=== PATIENT | female | born 1960 | race Caucasian/White ===

== ENCOUNTER → 2017-08-19 09:15 | Outpatient (CLI) | payer MEDICAID, SELFPAY ==
[2017-08-19 10:19] LABS: Absolute Lymphocyte Count 2.24 X10^3/ul (0.83-4.51); Absolute Neutrophil Count 3.6 X10^3/uL (2.0-7.7); Basophil# 0.03 X10^3/uL; Basophil% 0.5 % (0-1); Eosinophil# 0.25 X10^3/uL; Eosinophils% 3.8 % (0-5); Hematocrit 45.7 % (37-47); Hemoglobin 14.8 g/dl (12.0-15.0); Lymphocyte # 2.24 X10^3/ul (4.0); Lymphocyte % 34.1 % (19-41); Mean Corp Hgb Conc 32.4 g/gl (32-36); Mean Corpuscular Hgb 28.5 pg (27.0-32.0); Mean Corpuscular Volume 87.9 fL (81-99); Mean Platelet Vol. 9.1 fl (6.2-12.0); Monocyte# 0.41 X10^3/uL; Monocyte% 6.2 % (0-10); Neutrophil # 3.63 X10^3/uL (2.7-7.7); Neutrophil % 55.2 % (47-70); Platelet Count 296 K/mm3 (150-450); RBC Distribution Width CV 12.2 % (11.6-14.6); RBC Distribution Width SD 39.1 fl (35.1-43.9); White Blood Count 6.6 K/mm3 (4.4-11.0)
[2017-08-19 10:21] LABS: POSITIVE COUNT NO; POSITIVE DIFFERENTIAL NO; POSITIVE MORPHOLOGY NO
[2017-08-19 10:52] LABS: ALB/GLOB Ratio 0.9 RATIO (0.9-2.4); AST(SGOT) 17 U/L (15-37); Alanine Aminotransfer ALT/SGPT 23 U/L (13-56); Albumin, Serum 3.5 g/dL (3.2-5.0); Alkaline Phosphatase 75 U/L (45-117); Anion Gap 7 (5-15); BUN 12 mg/dL (7-18); BUN/Creat Ratio 15.4 RATIO (10-20); Calcium,Total 8.7 mg/dL (8.5-10.1); Chloride 107 mmol/L (98-107); Creatinine, Serum 0.78 mg/dL (0.55-1.02); EST Glomerular Filtration Rate 81 mL/min (>60); Est Glom Filt Rate - Afr Amer 99 mL/min (>60); Free T3 5.4 pg/mL (2.18-3.98); Globulin 3.7 g/dL (2.2-4.2); Glucose 92 mg/dL (74-106); Potassium 4.1 mmol/L (3.5-5.1); Protein, Total 7.2 g/dL (6.4-8.2); Sodium Level 142 mmol/L (136-145); T4 Free Direct 0.97 ng/dL (0.76-1.46); Thyroid Stim Hormone (TSH) 0.06 uIU/mL (0.358-3.74)
[2017-08-21 11:07] LABS: Thyroid Peroxidase AB 10 IU/mL (0-34)
== END ==
PROVIDERS: Visit Provider Preventive Medicine Public Health & General Preventive Medicine
DX: E03.9 Hypothyroidism, unspecified (principal)
CPT/HCPCS: 80053; 84439; 84443; 84481; 85025; 86376

== ENCOUNTER → 2017-09-02 11:04 | Outpatient (CLI) | payer MEDICAID, SELFPAY ==
[2017-09-02 11:54] LABS: Estradiol 16.8 pg/mL; Follicle Stimulating Hormone 35.1 mIU/mL; Luteinizing Hormone 26.6 mIU/mL
[2017-09-04 13:12] LABS: Progesterone Level 0.12 ng/mL (See Comment)
== END ==
PROVIDERS: Visit Provider Preventive Medicine Public Health & General Preventive Medicine
DX: N95.1 Menopausal and female climacteric states (principal); E34.9 Endocrine disorder, unspecified; E55.9 Vitamin D deficiency, unspecified
CPT/HCPCS: 36415; 82306; 82670; 83001; 83002; 84144; 84403

== ENCOUNTER → 2019-01-07 11:06 | Outpatient (CLI) | payer OTHER, SELFPAY ==
[2019-01-07 13:56] LABS: Absolute Lymphocyte Count 1.76 X10^3/uL (0.83-4.51); Absolute Neutrophil Count 3.7 X10^3/uL (2.0-7.7); Basophil# 0.05 X10^3/uL; Basophil% 0.8 % (0-1); Eosinophil# 0.21 X10^3/uL; Eosinophils% 3.3 % (0-5); Hematocrit 45.4 % (37-47); Hemoglobin 14.3 g/dL (12.0-15.0); Lymphocyte # 1.76 X10^3/ul (4.0); Lymphocyte % 27.9 % (19-41); Mean Corp Hgb Conc 31.5 g/dL (32-36); Mean Corpuscular Hgb 27.8 pg (27.0-32.0); Mean Corpuscular Volume 88.2 fL (81-99); Mean Platelet Vol. 8.8 fl (6.2-12.0); Monocyte# 0.53 X10^3/uL; Monocyte% 8.4 % (0-10); NRBC Flagged by Analyzer 0 % (0-5); Neutrophil # 3.74 X10^3/uL (2.7-7.7); Neutrophil % 59.3 % (47-70); Platelet Count 311 K/mm3 (150-450); RBC Distribution Width CV 12.1 % (11.6-14.6); RBC Distribution Width SD 39.1 fl (35.1-43.9); Red Blood Count 5.15 M/mm3 (4.2-5.4); White Blood Count 6.3 K/mm3 (4.4-11.0)
[2019-01-07 14:13] LABS: Progesterone Level 0.31 ng/mL (See Comment); Vitamin D,25 Hydroxy 44.4 ng/mL (29.95-100.01)
[2019-01-07 14:16] LABS: ALB/GLOB Ratio 0.9 RATIO (0.9-2.4); AST(SGOT) 14 U/L (15-37); Alanine Aminotransfer ALT/SGPT 21 U/L (13-56); Albumin, Serum 3.4 g/dL (3.2-5.0); Alkaline Phosphatase 83 U/L (45-117); Anion Gap 6 (5-15); BUN 12 mg/dL (7-18); BUN/Creat Ratio 15.6 RATIO (10-20); Calcium,Total 8.5 mg/dL (8.5-10.1); Chloride 108 mmol/L (98-107); Creatinine, Serum 0.77 mg/dL (0.55-1.02); EST Glomerular Filtration Rate 82 mL/min (>60); Est Glom Filt Rate - Afr Amer 99 mL/min (>60); Estradiol 27.8 pg/mL; Follicle Stimulating Hormone 28.9 mIU/mL; Free T3 3.9 pg/mL (2.18-3.98); Globulin 3.7 g/dL (2.2-4.2); Glucose 91 mg/dL (74-106); Luteinizing Hormone 23.2 mIU/mL; Potassium 3.9 mmol/L (3.5-5.1); Protein, Total 7.1 g/dL (6.4-8.2); Sodium Level 142 mmol/L (136-145); T4 Free Direct 0.87 ng/dL (0.76-1.46); Thyroid Stim Hormone (TSH) 2.69 uIU/mL (0.358-3.74)
[2019-01-09 03:06] LABS: DHEA Sulfate 125.9 ug/dL (29.4-220.5); Testosterone Free 4.3 pg/mL (0.0-4.2)
[2019-01-09 12:54] LABS: Thyroid Peroxidase AB 6 IU/mL (0-34)
== END ==
PROVIDERS: Referring Provider Preventive Medicine Public Health & General Preventive Medicine; Visit Provider Preventive Medicine Public Health & General Preventive Medicine
DX: E03.9 Hypothyroidism, unspecified (principal); E34.9 Endocrine disorder, unspecified; N95.1 Menopausal and female climacteric states; E55.9 Vitamin D deficiency, unspecified
CPT/HCPCS: 36415; 80053; 82306; 82627; 82670; 83001; 83002; 84144; 84402; 84439; 84443; 84481; 85025; 86376; 82626

== ENCOUNTER → 2020-06-26 09:53 | Outpatient (CLI) | payer OTHER, SELFPAY ==
[2020-06-26 10:58] LABS: Absolute Lymphocyte Count 2.35 X10^3/uL (0.83-4.51); Absolute Neutrophil Count 4.7 X10^3/uL (2.0-7.7); Basophil# 0.05 X10^3/uL; Basophil% 0.6 % (0-1); Eosinophil# 0.18 X10^3/uL; Eosinophils% 2.3 % (0-5); Hematocrit 46.7 % (37-47); Hemoglobin 14.8 g/dL (12.0-15.0); Lymphocyte # 2.35 X10^3/ul (4.0); Lymphocyte % 29.9 % (19-41); Mean Corp Hgb Conc 31.7 g/dL (32-36); Mean Corpuscular Hgb 28.5 pg (27.0-32.0); Mean Corpuscular Volume 89.8 fL (81-99); Mean Platelet Vol. 9.1 fl (6.2-12.0); Monocyte# 0.57 X10^3/uL; Monocyte% 7.3 % (0-10); NRBC Flagged by Analyzer 0 % (0-5); Neutrophil # 4.66 X10^3/uL (2.7-7.7); Neutrophil % 59.3 % (47-70); Platelet Count 344 K/mm3 (150-450); RBC Distribution Width CV 12.8 % (11.6-14.6); RBC Distribution Width SD 41.9 fl (35.1-43.9); White Blood Count 7.9 K/mm3 (4.4-11.0)
[2020-06-26 11:45] LABS: Vitamin D,25 Hydroxy 53.6 ng/mL
[2020-06-26 11:52] LABS: ALB/GLOB Ratio 0.9 RATIO (0.9-2.4); AST(SGOT) 27 U/L (15-37); Alanine Aminotransfer ALT/SGPT 46 U/L (13-56); Albumin, Serum 3.6 g/dL (3.2-5.0); Alkaline Phosphatase 90 U/L (45-117); Anion Gap 5 (5-15); BUN 13 mg/dL (7-18); BUN/Creat Ratio 14.3 RATIO (10-20); Calcium,Total 9.1 mg/dL (8.5-10.1); Chloride 105 mmol/L (98-107); Creatinine, Serum 0.91 mg/dL (0.55-1.02); EST Glomerular Filtration Rate 68 mL/min (>60); Est Glom Filt Rate - Afr Amer 82 mL/min (>60); Estradiol 29.2 pg/mL; Free T3 3.6 pg/mL (2.18-3.98); Globulin 4.2 g/dL (2.2-4.2); Glucose 115 mg/dL (74-106); Protein, Total 7.8 g/dL (6.4-8.2); Sodium Level 140 mmol/L (136-145); T4 Free Direct 0.87 ng/dL (0.76-1.46); Thyroid Stim Hormone (TSH) 3.21 uIU/mL (0.358-3.74)
[2020-06-26 13:19] LABS: Progesterone Level < 0.21 ng/mL (See Comment)
[2020-06-27 13:42] LABS: Thyroid Peroxidase AB < 9 IU/mL (0-34)
== END ==
PROVIDERS: Visit Provider Preventive Medicine Public Health & General Preventive Medicine
DX: E03.9 Hypothyroidism, unspecified (principal); E34.9 Endocrine disorder, unspecified; N95.1 Menopausal and female climacteric states; E55.9 Vitamin D deficiency, unspecified
CPT/HCPCS: 36415; 80053; 82306; 82627; 82670; 84144; 84403; 84439; 84443; 84481; 85025; 86376; 82626

== ENCOUNTER → 2021-10-13 | Outpatient (CLI) | payer OTHER, SELFPAY ==
[2021-10-13 10:05] LABS: Absolute Neutrophil Count 4.8 X10^3/uL (2.0-7.7); Basophil# 0.05 X10^3/uL; Basophil% 0.6 % (0-1); Eosinophils% 3.6 % (0-5); Hematocrit 46.7 % (37-47); Hemoglobin 15.1 g/dL (12.0-15.0); Lymphocyte % 30.3 % (19-41); Mean Corp Hgb Conc 32.3 g/dL (32-36); Mean Corpuscular Hgb 28.5 pg (27.0-32.0); Mean Corpuscular Volume 88.1 fL (81-99); Mean Platelet Vol. 8.7 fl (6.2-12.0); Monocyte# 0.56 X10^3/uL; Monocyte% 6.8 % (0-10); NRBC Flagged by Analyzer 0 % (0-5); Neutrophil # 4.77 X10^3/uL (2.7-7.7); Platelet Count 356 K/mm3 (150-450); RBC Distribution Width CV 12.2 % (11.6-14.6); RBC Distribution Width SD 39.4 fl (35.1-43.9); White Blood Count 8.2 K/mm3 (4.4-11.0)
[2021-10-13 10:46] LABS: Progesterone Level 0.53 ng/mL (See Comment)
[2021-10-13 11:51] LABS: ALB/GLOB Ratio 0.9 RATIO (0.9-2.4); AST(SGOT) 25 U/L (15-37); Alanine Aminotransfer ALT/SGPT 33 U/L (13-56); Albumin, Serum 3.5 g/dL (3.2-5.0); Alkaline Phosphatase 78 U/L (45-117); Anion Gap 6 (5-15); BUN 11 mg/dL (7-18); Chloride 106 mmol/L (98-107); Creatinine, Serum 0.92 mg/dL (0.55-1.02); EST Glomerular Filtration Rate 66 mL/min (>60); Est Glom Filt Rate - Afr Amer 80 mL/min (>60); Estradiol 40.4 pg/mL; Free T3 3.8 pg/mL (2.18-3.98); Glucose 126 mg/dL (74-106); Protein, Total 7.5 g/dL (6.4-8.2); Sodium Level 139 mmol/L (136-145); T4 Free Direct 1.06 ng/dL (0.76-1.46); Thyroid Stim Hormone (TSH) 2.97 uIU/mL (0.358-3.74)
[2021-10-14 09:08] LABS: Thyroid Peroxidase AB < 8 IU/mL (0-34)
== END | disposition home or self-care (01) ==
LOC: LAB 09:47
PROVIDERS: Referring Provider Preventive Medicine Public Health & General Preventive Medicine; Visit Provider Preventive Medicine Public Health & General Preventive Medicine
DX: E03.9 Hypothyroidism, unspecified (principal); N95.1 Menopausal and female climacteric states
CPT/HCPCS: 36415; 80053; 82627; 82670; 84144; 84403; 84439; 84443; 84481; 85025; 86376; 82626

== ENCOUNTER → 2022-10-28 | Outpatient (CLI) | payer BC, SELFPAY ==
[2022-10-28 12:38] LABS: Absolute Lymphocyte Count 2.55 X10^3/uL (0.83-4.51); Absolute Neutrophil Count 4.6 X10^3/uL (2.0-7.7); Basophil# 0.06 X10^3/uL; Basophil% 0.8 % (0-1); Eosinophil# 0.23 X10^3/uL; Eosinophils% 2.9 % (0-5); Hematocrit 47.4 % (37-47); Hemoglobin 14.9 g/dL (12.0-15.0); Lymphocyte # 2.55 X10^3/ul (0.83-4.51); Mean Corp Hgb Conc 31.4 g/dL (32-36); Mean Corpuscular Hgb 28.3 pg (27.0-32.0); Mean Corpuscular Volume 90.1 fL (81-99); Mean Platelet Vol. 9.4 fl (6.2-12.0); Monocyte# 0.51 X10^3/uL; Monocyte% 6.4 % (0-10); NRBC Flagged by Analyzer 0 % (0-5); Neutrophil # 4.57 X10^3/uL (2.7-7.7); Neutrophil % 57.4 % (47-70); Platelet Count 391 K/mm3 (150-450); RBC Distribution Width CV 12.5 % (11.6-14.6); RBC Distribution Width SD 41.1 fl (35.1-43.9); Red Blood Count 5.26 M/mm3 (4.2-5.4)
[2022-10-28 13:20] LABS: Progesterone Level 0.68 ng/mL (See Comment)
[2022-10-28 15:11] LABS: ALB/GLOB Ratio 0.9 RATIO (0.9-2.4); AST(SGOT) 23 U/L (15-37); Alanine Aminotransfer ALT/SGPT 32 U/L (13-56); Albumin, Serum 3.6 g/dL (3.2-5.0); Alkaline Phosphatase 71 U/L (45-117); Anion Gap 6 (5-15); BUN 16 mg/dL (7-18); BUN/Creat Ratio 20.3 RATIO (10-20); Chloride 105 mmol/L (98-107); Creatinine, Serum 0.79 mg/dL (0.55-1.02); EST Glomerular Filtration Rate 79 mL/min (>60); Est Glom Filt Rate - Afr Amer 95 mL/min (>60); Estradiol 36.6 pg/mL; Free T3 3.7 pg/mL (2.18-3.98); Globulin 3.9 g/dL (2.2-4.2); Glucose 115 mg/dL (74-106); Protein, Total 7.5 g/dL (6.4-8.2); Sodium Level 140 mmol/L (136-145); T4 Free Direct 0.93 ng/dL (0.76-1.46); Thyroid Stim Hormone (TSH) 2.87 uIU/mL (0.358-3.74)
[2022-10-29 04:07] LABS: Thyroid Peroxidase AB < 9 IU/mL (0-34)
== END | disposition home or self-care (01) ==
PROVIDERS: Referring Provider Preventive Medicine Public Health & General Preventive Medicine; Visit Provider Preventive Medicine Public Health & General Preventive Medicine
DX: E03.9 Hypothyroidism, unspecified (principal); N95.1 Menopausal and female climacteric states
CPT/HCPCS: 36415; 80053; 82670; 84144; 84403; 84439; 84443; 84481; 85025; 86376

== ENCOUNTER → 2022-11-21 | Outpatient (CLI) | payer BC, SELFPAY ==
[2022-11-21 09:41] LABS: ALB/GLOB Ratio 0.8 RATIO (0.9-2.4); AST(SGOT) 21 U/L (15-37); Alanine Aminotransfer ALT/SGPT 26 U/L (13-56); Albumin, Serum 3.3 g/dL (3.2-5.0); Alkaline Phosphatase 71 U/L (45-117); Anion Gap 7 (5-15); BUN 11 mg/dL (7-18); BUN/Creat Ratio 13.6 RATIO (10-20); Calcium,Total 8.6 mg/dL (8.5-10.1); Chloride 109 mmol/L (98-107); Cholesterol 192 mg/dL (200); Creatinine, Serum 0.81 mg/dL (0.55-1.02); EST Glomerular Filtration Rate 76 mL/min (>60); Est Glom Filt Rate - Afr Amer 93 mL/min (>60); Globulin 3.9 g/dL (2.2-4.2); Glucose 119 mg/dL (74-106); High Density Lipoprotein 48 mg/dL; Potassium 3.6 mmol/L (3.5-5.1); Protein, Total 7.2 g/dL (6.4-8.2); Sodium Level 142 mmol/L (136-145); Triglycerides 195 mg/dL; Very Low Density Lipoprotein 39 mg/dL (5-40)
[2022-11-22 11:08] LABS: C-Peptide 3.5 ng/mL (1.1-4.4)
== END | disposition home or self-care (01) ==
LOC: LAB 08:00
PROVIDERS: Referring Provider Preventive Medicine Public Health & General Preventive Medicine; Visit Provider Preventive Medicine Public Health & General Preventive Medicine
DX: E78.5 Hyperlipidemia, unspecified (principal); E16.2 Hypoglycemia, unspecified; E63.9 Nutritional deficiency, unspecified
CPT/HCPCS: 36415; 80053; 80061; 84681

== ENCOUNTER → 2023-05-26 | Outpatient (CLI) | payer BC, SELFPAY ==
[2023-05-26 07:47] LABS: Absolute Lymphocyte Count 3.33 X10^3/uL (0.83-4.51); Absolute Neutrophil Count 4.1 X10^3/uL (2.0-7.7); Basophil# 0.05 X10^3/uL; Basophil% 0.6 % (0-1); Eosinophil# 0.24 X10^3/uL; Eosinophils% 2.9 % (0-5); Hematocrit 47.9 % (37-47); Hemoglobin 15.3 g/dL (12.0-15.0); Lymphocyte # 3.33 X10^3/ul (0.83-4.51); Lymphocyte % 39.7 % (19-41); Mean Corp Hgb Conc 31.9 g/dL (32-36); Mean Corpuscular Hgb 28.4 pg (27.0-32.0); Mean Platelet Vol. 8.9 fl (6.2-12.0); Monocyte% 7.2 % (0-10); NRBC Flagged by Analyzer 0 % (0-5); Neutrophil # 4.12 X10^3/uL (2.7-7.7); Neutrophil % 49.1 % (47-70); Platelet Count 403 K/mm3 (150-450); RBC Distribution Width CV 12.3 % (11.6-14.6); Red Blood Count 5.38 M/mm3 (4.2-5.4); White Blood Count 8.4 K/mm3 (4.4-11.0)
[2023-05-26 09:01] LABS: ALB/GLOB Ratio 0.9 RATIO (0.9-2.4); AST(SGOT) 24 U/L (15-37); Alanine Aminotransfer ALT/SGPT 29 U/L (13-56); Albumin, Serum 3.6 g/dL (3.2-5.0); Alkaline Phosphatase 77 U/L (45-117); Anion Gap 5 (5-15); BUN 16 mg/dL (7-18); BUN/Creat Ratio 16.7 RATIO (10-20); Calcium,Total 9.2 mg/dL (8.5-10.1); Chloride 107 mmol/L (98-107); Cholesterol 186 mg/dL (200); Creatinine, Serum 0.96 mg/dL (0.55-1.02); EST Glomerular Filtration Rate 63 mL/min (>60); Est Glom Filt Rate - Afr Amer 76 mL/min (>60); Free T3 2.3 pg/mL (2.18-3.98); Glucose 132 mg/dL (74-106); High Density Lipoprotein 48 mg/dL; Protein, Total 7.6 g/dL (6.4-8.2); Sodium Level 140 mmol/L (136-145); T4 Free Direct 0.87 ng/dL (0.76-1.46); Thyroid Stim Hormone (TSH) 5.39 uIU/mL (0.358-3.74); Triglycerides 204 mg/dL; Very Low Density Lipoprotein 41 mg/dL (5-40)
[2023-05-26 09:53] LABS: Hemoglobin A1c 6.1 % (3.8-5.6)
[2023-05-26 09:58] LABS: Progesterone Level 0.71 ng/mL (See Comment)
[2023-05-26 10:51] LABS: Homocysteine 11.2 umol/L (3.2-10.7)
[2023-05-27 08:11] LABS: Thyroid Peroxidase AB 9 IU/mL (0-34)
== END | disposition home or self-care (01) ==
LOC: LAB 07:24
PROVIDERS: Referring Provider Preventive Medicine Public Health & General Preventive Medicine; Visit Provider Preventive Medicine Public Health & General Preventive Medicine
DX: E03.9 Hypothyroidism, unspecified (principal); E78.5 Hyperlipidemia, unspecified; N95.1 Menopausal and female climacteric states
CPT/HCPCS: 36415; 80053; 80061; 83036; 83090; 84144; 84403; 84439; 84443; 84481; 85025; 86376

== ENCOUNTER → 2024-03-02 | Outpatient (CLI) | payer BC, SELFPAY ==
[2024-03-02 07:49] LABS: Absolute Lymphocyte Count 2.92 X10^3/uL (0.83-4.51); Absolute Neutrophil Count 4.7 X10^3/uL (2.0-7.7); Basophil# 0.06 X10^3/uL; Basophil% 0.7 % (0-1); Eosinophil# 0.23 X10^3/uL; Eosinophils% 2.7 % (0-5); Hematocrit 46.6 % (37-47); Hemoglobin 14.7 g/dL (12.0-15.0); Lymphocyte # 2.92 X10^3/ul (0.83-4.51); Lymphocyte % 34.7 % (19-41); Mean Corp Hgb Conc 31.5 g/dL (32-36); Mean Corpuscular Hgb 28.1 pg (27.0-32.0); Mean Corpuscular Volume 89.1 fL (81-99); Mean Platelet Vol. 8.7 fl (6.2-12.0); Monocyte% 5.9 % (0-10); NRBC Flagged by Analyzer 0 % (0-5); Neutrophil # 4.67 X10^3/uL (2.7-7.7); Neutrophil % 55.6 % (47-70); Platelet Count 404 K/mm3 (150-450); RBC Distribution Width SD 39.5 fl (35.1-43.9); Red Blood Count 5.23 M/mm3 (4.2-5.4); White Blood Count 8.4 K/mm3 (4.4-11.0)
[2024-03-02 08:51] LABS: ALB/GLOB Ratio 0.9 RATIO (0.9-2.4); AST(SGOT) 19 U/L (15-37); Alanine Aminotransfer ALT/SGPT 24 U/L (13-56); Albumin, Serum 3.6 g/dL (3.2-5.0); Alkaline Phosphatase 70 U/L (45-117); Anion Gap 8 (5-15); BUN 15 mg/dL (7-18); BUN/Creat Ratio 16.7 RATIO (10-20); Calcium,Total 8.9 mg/dL (8.5-10.1); Chloride 107 mmol/L (98-107); EST Glomerular Filtration Rate 67 mL/min (>60); Est Glom Filt Rate - Afr Amer 82 mL/min (>60); Estradiol 31.9 pg/mL; Free T3 2.3 pg/mL (2.18-3.98); Globulin 3.8 g/dL (2.2-4.2); Glucose 147 mg/dL (74-106); Potassium 3.6 mmol/L (3.5-5.1); Protein, Total 7.4 g/dL (6.4-8.2); Sodium Level 140 mmol/L (136-145); T4 Free Direct 0.91 ng/dL (0.76-1.46)
[2024-03-03 07:28] LABS: Thyroid Peroxidase AB 15 IU/mL (0-34)
[2024-03-06 04:08] LABS: PROGESTERONE 0.3 ng/mL (.)
== END | disposition home or self-care (01) ==
LOC: LAB 07:22
PROVIDERS: Referring Provider Preventive Medicine Public Health & General Preventive Medicine; Visit Provider Preventive Medicine Public Health & General Preventive Medicine
DX: E03.9 Hypothyroidism, unspecified (principal); N95.1 Menopausal and female climacteric states
CPT/HCPCS: 36415; 80053; 82670; 84144; 84403; 84439; 84443; 84481; 85025; 86376

== ENCOUNTER → 2024-05-06 | Outpatient (CLI) | payer BC, SELFPAY ==
[2024-05-06 07:21] LABS: Bedside Glucose 108 mg/dL (74-106)
[2024-05-06 08:03] LABS: Glucose GTT- Fasting 119 mg/dL (74-106)
[2024-05-06 08:24] LABS: Glucose GTT-30 minutes 169 mg/dL (110-170)
[2024-05-06 09:47] LABS: Glucose GTT- 2 Hour 216 mg/dL (70-120)
[2024-05-06 10:18] LABS: Glucose GTT- 1 Hour 216 mg/dL (120-170)
[2024-05-06 11:04] LABS: Glucose GTT- 3 Hour 120 mg/dL (74-106)
[2024-05-07 06:08] LABS: Insulin Level 14.6 uIU/mL (2.6-24.9)
[2024-05-07 08:09] LABS: Insulin Level 46.6 uIU/mL (2.6-24.9)
[2024-05-07 08:09] LABS: Insulin Level 48.6 uIU/mL (2.6-24.9)
[2024-05-07 08:09] LABS: Insulin Level 60.1 uIU/mL (2.6-24.9)
== END | disposition home or self-care (01) ==
LOC: LAB 06:49
PROVIDERS: Referring Provider Preventive Medicine Public Health & General Preventive Medicine; Visit Provider Preventive Medicine Public Health & General Preventive Medicine
DX: E11.649 Type 2 diabetes mellitus with hypoglycemia without coma (principal)
CPT/HCPCS: 36415; 82951; 82952; 82962; 83525

== ENCOUNTER → 2024-08-02 | Outpatient (CLI) | payer BC, SELFPAY ==
[2024-08-02 08:34] LABS: Absolute Lymphocyte Count 2.82 X10^3/uL (0.83-4.51); Absolute Neutrophil Count 4.1 X10^3/uL (2.0-7.7); Basophil# 0.05 X10^3/uL; Basophil% 0.6 % (0-1); Hematocrit 45.3 % (37-47); Hemoglobin 14.7 g/dL (12.0-15.0); Lymphocyte # 2.82 X10^3/ul (0.83-4.51); Lymphocyte % 35.5 % (19-41); Mean Corp Hgb Conc 32.5 g/dL (32-36); Mean Corpuscular Hgb 28.3 pg (27.0-32.0); Mean Corpuscular Volume 87.3 fL (81-99); Mean Platelet Vol. 9.3 fl (6.2-12.0); Monocyte# 0.61 X10^3/uL; Monocyte% 7.7 % (0-10); NRBC Flagged by Analyzer 0 % (0-5); Neutrophil # 4.05 X10^3/uL (2.7-7.7); Neutrophil % 50.9 % (47-70); Platelet Count 354 K/mm3 (150-450); RBC Distribution Width CV 12.8 % (11.6-14.6); RBC Distribution Width SD 40.6 fl (35.1-43.9); Red Blood Count 5.19 M/mm3 (4.2-5.4)
[2024-08-02 09:32] LABS: Hemoglobin A1c 5.6 % (<=5.6)
[2024-08-02 09:33] LABS: ALB/GLOB Ratio 1.3 RATIO (0.9-2.4); AST(SGOT) 28 U/L (<=31); Alanine Aminotransfer ALT/SGPT 34 U/L (<=34); Alkaline Phosphatase 63 U/L (35-104); Anion Gap 11 (5-15); BUN 12 mg/dL (4-19); BUN/Creat Ratio 17.1 RATIO (10-20); Carbon Dioxide 24.5 mmol/L (21.0-32.0); Chloride 106 mmol/L (98-108); Creatinine, Serum 0.71 mg/dL (0.70-1.20); EST Glomerular Filtration Rate 97 (>60); Globulin 3.1 g/dL (2.2-4.2); Glucose 102 mg/dL (70-99); Potassium 4.2 mmol/L (3.3-5.1); Sodium Level 141 mmol/L (133-145); Total Bilirubin 0.32 mg/dL (0.00-1.30)
[2024-08-03 10:08] LABS: C-Peptide 3.7 ng/mL (1.1-4.4)
== END | disposition home or self-care (01) ==
LOC: LAB 07:22
PROVIDERS: Referring Provider Preventive Medicine Public Health & General Preventive Medicine; Visit Provider Preventive Medicine Public Health & General Preventive Medicine
DX: E11.649 Type 2 diabetes mellitus with hypoglycemia without coma (principal); E63.9 Nutritional deficiency, unspecified
CPT/HCPCS: 36415; 80053; 83036; 84681; 85025

== ENCOUNTER → 2024-10-25 | Outpatient (CLI) | payer BC, SELFPAY ==
--- OUTSIDE RECORDS SUMMARY | 2024-10-25 07:16 | XMS RPT_ITS | CCD ---
Author Organization [facility] Care Team Providers Care Recruitment Assistant Name Role Phone Care Physician, No Primary Primary Care Unava ilable Cedric, Black Attending Unavailable Cedric, Black Referring Unavailable Care Physician, No Primary Primary Care Unava ilable Cedric, Black Attending Unavailable Cedric, Black Referring Unavailable Care Physician, No Primary Primary Care Unava ilable Cedric, Black Attending Unavailable Cedric, Black Referring Unavailable Problems Problem Classification Problem Date Documented Da te Episodic/Chronic Diabetes mellitus with complications (1 source) Type 2 diabetes mellitus with 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 Performed at: [facility] [address] [id number] Director Surgical: Magdaleno Mcnamara PhD, Phone: [phone] Performed By: #### L 3300.3500, [id number] #### [facility] [address] [place], [address] CBC W/Diff, Automatedon 07-10 Absolute Lymph 2.82 X10 3/uL Normal 0.83-4.51 [facility] Comment on above: Performed By: #### L 3300.3500, L500.4700 #### [facility] [address] [place], [address] Absolute Neut 4.1 X10 3/uL Normal 2.0-7.7 [facility] Comment on above: Performed By: #### L 3300.3500, L500.4700 #### [facility] [address] [place], [address] Basophils/100 WBC (Bld) 0.6 % Normal 0-1 [facility] Comment on above: Performed By: #### L 3300.3500, L500.4700 #### [facility] [address] [place], [address] Eosinophils/100 WBC (Bld) 5.0 % Normal 0-5 [facility] Comment on above: Performed By: #### L 3300.3500, L500.4700 #### [facility] [address] [place], [address] Erythrocyte distribution width (RBC) [Ratio] 12.8 % Normal 11.6-14.6 [facility] Comment on above: Performed By: #### L 3300.3500, L500.4700 #### [facility] [address] [place], [address] Hematocrit (Bld) [Volume fraction] 45.3 % Normal 37-47 [facility] Comment on above: Performed By: #### L 3300.3500, L500.4700 #### [facility] [address] [place], [address] Hemoglobin (Bld) [Mass/Vol] 14.7 g/dL Normal 12.0-15.0 [facility] Comment on above: Performed By: #### L 3300.3500, L500.4700 #### [facility] [address] [place], [address] IG% 0.300 Normal 0.0-0.9 [facility] Comment on above: Result Comment: IG% - Immature Granulocytes (promyelocytes, myelocytes and metamyelocytes) > 1% indicates that a LEFT SHIFT is Present. Performed By: #### L 3300.3500, L500.4700 #### [facility] [address] [place], [address] Lymphocytes/100 WBC (Bld) 35.5 % Normal 19-41 [facility] Comment on above: Performed By: #### L 3300.3500, L500.4700 #### [facility] [address] [place], [address] MCH (RBC) [Entitic mass] 28.3 pg Normal 27.0-32.0 [facility] Comment on above: Performed By: #### L 3300.3500, L500.4700 #### [facility] [address] [place], [address] MCHC (RBC) [Mass/Vol] 32.5 g/dL Normal 32-36 [facility] Comment on above: Performed By: #### L 3300.3500, L500.4700 #### [facility] [address] [place], [address] MCV (RBC) [Entitic vol] 87.3 fL Normal 81-99 [facility] Comment on above: Performed By: #### L 3300.3500, L500.4700 #### [facility] [address] [place], [address] Monocytes/100 WBC (Bld) 7.7 % Normal 0-10 [facility] Comment on above: Performed By: #### L 3300.3500, L500.4700 #### [facility] [address] [place], [address] Neutrophils/100 WBC (Bld) 50.9 % Normal 47-70 [facility] Comment on above: Performed By: #### L 3300.3500, L500.4700 #### [facility] [address] [place], [address] Nucleated RBC (Bld) [#/Vol] 0 10*3/uL Normal 0-5 [facility] Comment on above: Performed By: #### L 3300.3500, L500.4700 #### [facility] [address] [place], [address] Platelet mean volume (Bld) [Entitic vol] 9.3 fL Normal 6.2-12.0 [facility] Comment on above: Performed By: #### L 3300.3500, L500.4700 #### [facility] [address] [place], [address] Platelets (Bld) [#/Vol] 354 10*3/uL Normal 150-450 [facility] Comment on above: Performed By: #### L 3300.3500, L500.4700 #### [facility] [address] [place], [address] RBC (Bld) [#/Vol] 5.19 10*6/uL Normal 4.2-5.4 [facility] Comment on above: Performed By: #### L 3300.3500, L500.4700 #### [facility] [address] [place], [address] RDW SD 40.6 fl Normal 35.1-43.9 [facility] Comment on above: Performed By: #### L 3300.3500, L500.4700 #### [facility] [address] [place], [address] WBC (Bld) [#/Vol] 8.0 10*3/uL Normal 4.4-11.0 [facility] Comment on above: Performed By: #### L 3300.3500, L500.4700 #### [facility] [address] [place], [address] Comprehensive Metabolic Prof ilon 08-02-2024 Albumin [Mass/Vol] 4.0 g/dL Normal 3.4-4.8 [facility] Comment on above: Performed By: #### L 3300.3500, L500.4700 #### [facility] [address] [place], [address] Albumin/Globulin [Mass ratio] 1.3 {ratio} Normal 0.9-2.4 [facility] Comment on above: Performed By: #### L 3300.3500, L500.4700 #### [facility] [address] [place], [address] ALK PHOS 63 U/L Normal 35-104 [facility] Comment on above: Performed By: #### L 3300.3500, L500.4700 #### [facility] [address] [place], [address] ALT [Catalytic activity/Vol] 34 U/L Normal <=34 [facility] Comment on above: Performed By: #### L 3300.3500, L500.4700 #### [facility] [address] [place], [address] AST [Catalytic activity/Vol] 28 U/L Normal <=31 [facility] Comment on above: Performed By: #### L 3300.3500, L500.4700 #### [facility] [address] [place], [address] Bilirubin [Mass/Vol] 0.32 mg/dL Normal 0.00-1.30 [facility] Comment on above: Performed By: #### L 3300.3500, L500.4700 #### [facility] [address] [place], [address] BUN/CRE 17.1 RATIO Normal 10-20 [facility] Comment on above: Performed By: #### L 3300.3500, L500.4700 #### [facility] [address] [place], [address] Calcium [Mass/Vol] 9.0 mg/dL Normal 7.6-11.0 [facility] Comment on above: Performed By: #### L 3300.3500, L500.4700 #### [facility] [address] [place], [address] Chloride [Moles/Vol] 106 mmol/L Normal 98-108 [facility] Comment on above: Performed By: #### L 3300.3500, L500.4700 #### [facility] [address] [place], [address] CO2 [Moles/Vol] 24.5 mmol/L Normal 21.0-32.0 [facility] Comment on above: Performed By: #### L 3300.3500, L500.4700 #### [facility] [address] [place], [address] Creatinine [Mass/Vol] 0.71 mg/dL Normal 0.70-1.20 [facility] Comment on above: Performed By: #### L 3300.3500, L500.4700 #### [facility] [address] [place], [address] GAP 11 Normal 5-15 [facility] Comment on above: Performed By: #### L 3300.3500, L500.4700 #### [facility] [address] [place], [address] GFR/1.73 sq M.predicted among non-blacks MDRD (S/P/Bld) [Vol rate/Area] 97 mL/min/{1.73_m2} Normal >60 [facility] Comment on above: Result Comment: mL/m in/1.73m2 CKD-EPI Creatinine Equation (2020) Performed By: #### L 3300.3500, L500.4700 #### [facility] [address] [place], [address] Globulin (S) [Mass/Vol] 3.1 g/dL Normal 2.2-4.2 [facility] Comment on above: Performed By: #### L 3300.3500, L500.4700 #### [facility] [address] [place], [address] Glucose [Mass/Vol] 102 mg/dL High 70-99 [facility] Comment on above: Performed By: #### L 3300.3500, L500.4700 #### [facility] [address] [place], [address] Potassium [Moles/Vol] 4.2 mmol/L Normal 3.3-5.1 [facility] Comment on above: Performed By: #### L 3300.3500, L500.4700 #### [facility] [address] [place], [address] Sodium [Moles/Vol] 141 mmol/L Normal 133-145 [facility] Comment on above: Performed By: #### L 3300.3500, L500.4700 #### [facility] [address] [place], [address] T PROT 7.0 g/dL Normal 5.9-8.4 [facility] Comment on above: Performed By: #### L 3300.3500, L500.4700 #### [facility] [address] [place], [address] Urea nitrogen [Mass/Vol] 12 mg/dL Normal 4-19 [facility] Comment on above: Performed By: #### L 3300.3500, L500.4700 #### [facility] [address] [place], [address] Hemoglobin A1con 08-02-2024 HbA1c (Bld) [Mass fraction] 5.6 % Normal <=5.6 [facility] Comment on above: Result Comment: Norm al < 5.7 % Prediabetic 5.7 - 6.4 % Diabetic >or= 6.5 % Please note range changes. Performed By: #### L 3300.3500, L500.4700 #### [facility] [address] [place], [place], [address] Insulin Levelon 05-07-2024 INSULIN,FASTING 60.1 uIU/mL High 2.6-24.9 [facility] Comment on above: Result Comment: Perf ormed at: [facility] [employer] [id number] Director Surgical: Magdaleno Mcnamara PhD, Phone: [phone] Performed By: #### L 3300.3500, L500.4700 #### [facility] [address] [place], [place], [address] INSULIN,FASTING 46.6 uIU/mL High 2.6-24.9 [facility] Comment on above: Result Comment: Perf ormed at: [facility] [employer] [id number] Director Surgical: Magdaleno Mcnamara PhD, Phone: [phone] Performed By: #### L 3300.3500, L500.4700 #### [facility] [address] [place], [place], [address] INSULIN,FASTING 48.6 uIU/mL High 2.6-24.9 [facility] Comment on above: Result Comment: Perf ormed at: [facility] [employer] [id number] Director Surgical: Magdaleno Mcnamara PhD, Phone: [phone] Performed By: #### L 3300.3500, L500.4700 #### [facility] [address] [place], [place], [address] INSULIN,FASTING 103.0 uIU/mL High 2.6-24.9 [facility] Comment on above: Result Comment: Perf ormed at: [address] [id number] Director Surgical: Magdaleno Mcnamara PhD, Phone: [phone] Performed By: #### L 3300.3500 #### [facility] [address] [place], [place], [address] INSULIN,FASTING 14.6 uIU/mL Normal 2.6-24.9 [facility] Comment on above: Result Comment: Perf ormed at: [address] [id number] Director Surgical: Magdaleno Mcnamara PhD, Phone: [phone] Performed By: #### L 3300.3500, L500.4700 #### [facility] [address] [place], [place], [id number] 3 HR Glucose Tolerance Testo n 05-06-2024 3HR GTT High 70-120 [facility] Comment on above: Order Comment: Y Result Comment: FAST ING 119 H Col: 05/06/24 0658 GLUCOSE TOLERANCE TEST Reference Interval Non- Adults Fasting 74 - 106 30 minutes 110 - 170 1 hour 120 - 170 2 hour 74 - 120 3 hour 74 - 106 4 hour 74 - 106 5 hour 74 - 106 GLU 1/2 HR 169 Col: 05/06/24 0728 GLU 1 HR 216 H Col: 05/06/24 0800 GLU 2 HR 216 H Col: 05/06/24 0901 GLU 3 HR 120 H Col: 05/06/24 1002 Performed By: #### L 3300.3500, L500.4700 #### [facility] [address] [place], [place], [address] Bedside Glucoseon 05-06-2024 FINGERSTICK GLU 108 mg/dL High 74-106 [facility] Comment on above: Result Comment: RUBY HAINES OF PATIENT CARE PER NURSING PROTOCOL Performed By: #### L 3300.3500, L500.4700 #### [facility] [address] [place], [address] PROGESTERONE 4317on 03-06-20 24 PROGESTERONE 0.3 ng/mL Normal . [facility] Comment on above: Order Comment: Y Result Comment: Foll icular phase 0.1 - 0.9 Luteal phase 1.8 - 23.9 Ovulation phase 0.1 - 12.0 First trimester 11.0 - 44.3 Second trimester 25.4 - 83.3 Third trimester 58.7 - 214.0 Postmenopausal 0.0 - 0.1 Performed By: #### L 3300.3500, L500.4700 #### [facility] [address] [place], [place], [id number] Testosterone, Serum Totalon 03-04-2024 Testosterone [Mass/Vol] 40.98 ng/dL Normal [facility] Comment on above: Result Comment: CENT RAL 90% REFERENCE RANGES MALE AGE <50 197.44 - 669.58 ng/dL MALE AGE > or = 50 187.72 - 684.19 ng/dL FEMALE AGE <50 8.38 - 35.01 ng/dL FEMALE AGE > or = 50 <7.00 - 35.92 ng/dL Effective as of 11/03/20 Performed By: #### L 3300.3500, L500.4700 #### [facility] [address] [place], [place], [address] Thyroid Peroxidase ABon - THYR PEROX AB 15 IU/mL Normal 0-34 [facility] Comment on above: Result Comment: Perf ormed at: - [facility] [address] [id number] Director Surgical: Magdaleno Mcnamara PhD, Phone: [phone] Performed By: #### L 801.2600, L100.0100, L501.86424, L509.3000, L3300.6900, L500.4050, L506.0400, L3300.1750, L501.9520 #### [facility] [address] [place], [address] CBC W/Diff, Automatedon 11-2 -2023 Absolute Lymph 2.92 X10 3/uL Normal 0.83-4.51 [facility] Comment on above: Performed By: #### L 801.2600, L100.0100, L501.26069, L509.3000, L3300.6900, L500.4050, L506.0400, L3300.1750, L501.9520 #### [facility] [address] [facility] [place], [address] Absolute Neut 4.7 X10 3/uL Normal 2.0-7.7 [facility] Comment on above: Performed By: #### L 801.2600, L100.0100, L501.23985, L509.3000, L3300.6900, L500.4050, L506.0400, L3300.1750, L501.9520 #### [facility] [address] [facility] [place], [address] Basophils/100 WBC (Bld) 0.7 % Normal 0-1 [facility] Comment on above: Performed By: #### L 801.2600, L100.0100, L501.16923, L509.3000, L3300.6900, L500.4050, L506.0400, L3300.1750, L501.9520 #### [facility] [address] [place], [address] Eosinophils/100 WBC (Bld) 2.7 % Normal 0-5 [facility] Comment on above: Performed By: #### L 801.2600, L100.0100, L501.08094, L509.3000, L3300.6900, L500.4050, L506.0400, L3300.1750, L501.9520 #### [facility] [address] [place], [address] Erythrocyte distribution width (RBC) [Ratio] 12.0 % Normal 11.6-14.6 [facility] Comment on above: Performed By: #### L 801.2600, L100.0100, L501.12806, L509.3000, L3300.6900, L500.4050, L506.0400, L3300.1750, L501.9520 #### [facility] [address] [place], [address] Hematocrit (Bld) [Volume fraction] 46.6 % Normal 37-47 [facility] Comment on above: Performed By: #### L 801.2600, L100.0100, L501.85277, L509.3000, L3300.6900, L500.4050, L506.0400, L3300.1750, L501.9520 #### [facility] [address] [place], [address] (204) Hemoglobin (Bld) [Mass/Vol] 14.7 g/dL Normal 12.0-15.0 [facility] Comment on above: Performed By: #### L 801.2600, L100.0100, L501.73042, L509.3000, L3300.6900, L500.4050, L506.0400, L3300.1750, L501.9520 #### [facility] [address] [place], [place], [id number] ([address]) IG% 0.400 Normal 0.0-0.9 [facility] Comment on above: Result Comment: IG% - Immature Granulocytes (promyelocytes, myelocytes and metamyelocytes) > 1% indicates that a LEFT SHIFT is Present. Performed By: #### L 801.2600, L100.0100, L501.65960, L509.3000, L3300.6900, L500.4050, L506.0400, L3300.1750, L501.9520 #### [facility] [address] [place], [place], [address] ([address]) Lymphocytes/100 WBC (Bld) 34.7 % Normal 19-41 [facility] Comment on above: Performed By: #### L 801.2600, L100.0100, L501.27853, L509.3000, L3300.6900, L500.4050, L506.0400, L3300.1750, L501.9520 #### [facility] [address] [place], [address] MCH (RBC) [Entitic mass] 28.1 pg Normal 27.0-32.0 [facility] Comment on above: Performed By: #### L 801.2600, L100.0100, L501.96311, L509.3000, L3300.6900, L500.4050, L506.0400, L3300.1750, L501.9520 #### [facility] [address] [place], [address] MCHC (RBC) [Mass/Vol] 31.5 g/dL Low 32-36 [facility] Comment on above: Performed By: #### L 801.2600, L100.0100, L501.55758, L509.3000, L3300.6900, L500.4050, L506.0400, L3300.1750, L501.9520 #### [facility] [address] [place], [address] MCV (RBC) [Entitic vol] 89.1 fL Normal 81-99 [facility] Comment on above: Performed By: #### L 801.2600, L100.0100, L501.52366, L509.3000, L3300.6900, L500.4050, L506.0400, L3300.1750, L501.9520 #### [facility] [address] [place], [address] Monocytes/100 WBC (Bld) 5.9 % Normal 0-10 [facility] Comment on above: Performed By: #### L 801.2600, L100.0100, L501.66811, L509.3000, L3300.6900, L500.4050, L506.0400, L3300.1750, L501.9520 #### [facility] [address] [place], [address] Neutrophils/100 WBC (Bld) 55.6 % Normal 47-70 [facility] Comment on above: Performed By: #### L 801.2600, L100.0100, L501.08450, L509.3000, L3300.6900, L500.4050, L506.0400, L3300.1750, L501.9520 #### [facility] [address] [facility] [place], [address] Nucleated RBC (Bld) [#/Vol] 0 10*3/uL Normal 0-5 [facility] Comment on above: Performed By: #### L 801.2600, L100.0100, L501.75709, L509.3000, L3300.6900, L500.4050, L506.0400, L3300.1750, L501.9520 #### [facility] [address] [facility] [place], [address] Platelet mean volume (Bld) [Entitic vol] 8.7 fL Normal 6.2-12.0 [facility] Comment on above: Performed By: #### L 801.2600, L100.0100, L501.99581, L509.3000, L3300.6900, L500.4050, L506.0400, L3300.1750, L501.9520 #### [facility] [address] [facility] [place], [address] Platelets (Bld) [#/Vol] 404 10*3/uL Normal 150-450 [facility] Comment on above: Performed By: #### L 801.2600, L100.0100, L501.80478, L509.3000, L3300.6900, L500.4050, L506.0400, L3300.1750, L501.9520 #### [facility] [address] [place], [address] ( RBC (Bld) [#/Vol] 5.23 10*6/uL Normal 4.2-5.4 [facility] Comment on above: Performed By: #### L 801.2600, L100.0100, L501.39496, L509.3000, L3300.6900, L500.4050, L506.0400, L3300.1750, L501.9520 #### [facility] [address] [place], [address] RDW SD 39.5 fl Normal 35.1-43.9 [facility] Comment on above: Performed By: #### L 801.2600, L100.0100, L501.71366, L509.3000, L3300.6900, L500.4050, L506.0400, L3300.1750, L501.9520 #### [facility] [address] [place], [address] WBC (Bld) [#/Vol] 8.4 10*3/uL Normal 4.4-11.0 [facility] Comment on above: Performed By: #### L 801.2600, L100.0100, L501.77382, L509.3000, L3300.6900, L500.4050, L506.0400, L3300.1750, L501.9520 #### [facility] [address] [place], [address] Comprehensive Metabolic Prof ilon 03-02-2024 Albumin [Mass/Vol] 3.6 g/dL Normal 3.2-5.0 [facility] Comment on above: Order Comment: N Performed By: #### L 801.2600, L100.0100, L501.25925, L509.3000, L3300.6900, L500.4050, L506.0400, L3300.1750, L501.9520 #### [facility] [address] [place], [address] Albumin/Globulin [Mass ratio] 0.9 {ratio} Normal 0.9-2.4 [facility] Comment on above: Order Comment: N Performed By: #### L 801.2600, L100.0100, L501.19359, L509.3000, L3300.6900, L500.4050, L506.0400, L3300.1750, L501.9520 #### [facility] [address] [place], [address] ALK P 70 U/L Normal 45-117 [facility] Comment on above: Order Comment: N Performed By: #### L 801.2600, L100.0100, L501.56527, L509.3000, L3300.6900, L500.4050, L506.0400, L3300.1750, L501.9520 #### [facility] [address] [place], [address] ALT [Catalytic activity/Vol] 24 U/L Normal 13-56 [facility] Comment on above: Order Comment: N Performed By: #### L 801.2600, L100.0100, L501.96577, L509.3000, L3300.6900, L500.4050, L506.0400, L3300.1750, L501.9520 #### [facility] [address] [place], [address] AST [Catalytic activity/Vol] 19 U/L Normal 15-37 [facility] Comment on above: Order Comment: N Performed By: #### L 801.2600, L100.0100, L501.52537, L509.3000, L3300.6900, L500.4050, L506.0400, L3300.1750, L501.9520 #### [facility] [address] [place], [address] Bilirubin [Mass/Vol] 0.40 mg/dL Normal 0.20-1.00 [facility] Comment on above: Order Comment: N Result Comment: For patients on eltrombopag therapy, use of [employer]ension [place] TBIL is not recommended. Performed By: #### L 801.2600, L100.0100, L501.03563, L509.3000, L3300.6900, L500.4050, L506.0400, L3300.1750, L501.9520 #### [facility] [address] [place], [address] BUN/CRE 16.7 RATIO Normal 10-20 [facility] Comment on above: Order Comment: N Performed By: #### L 801.2600, L100.0100, L501.51281, L509.3000, L3300.6900, L500.4050, L506.0400, L3300.1750, L501.9520 #### [facility] [address] [place], [address] CA,Total 8.9 mg/dL Normal 8.5-10.1 [facility] Comment on above: Order Comment: N Performed By: #### L 801.2600, L100.0100, L501.05754, L509.3000, L3300.6900, L500.4050, L506.0400, L3300.1750, L501.9520 #### [facility] [address] [place], [place] [address] Chloride [Moles/Vol] 107 mmol/L Normal 98-107 [facility] Comment on above: Order Comment: N Performed By: #### L 801.2600, L100.0100, L501.28834, L509.3000, L3300.6900, L500.4050, L506.0400, L3300.1750, L501.9520 #### [facility] [address] [place], [address] CO2 [Moles/Vol] 25.0 mmol/L Normal 21.0-32.0 [facility] Comment on above: Order Comment: N Performed By: #### L 801.2600, L100.0100, L501.12568, L509.3000, L3300.6900, L500.4050, L506.0400, L3300.1750, L501.9520 #### [facility] [address] [place], [address] Creatinine [Mass/Vol] 0.90 mg/dL Normal 0.55-1.02 [facility] Comment on above: Order Comment: N Result Comment: The validity of the calculated GFR GFRAA in patients over 70 years has not been determined. Clinical correlation is essential. Performed By: #### L 801.2600, L100.0100, L501.41688, L509.3000, L3300.6900, L500.4050, L506.0400, L3300.1750, L501.9520 #### [facility] [address] [place], [address] EST GFR - AA 82 mL/min Normal >60 [facility] Comment on above: Order Comment: N Result Comment: Afri can [place] GFR Calc Performed By: #### L 801.2600, L100.0100, L501.57314, L509.3000, L3300.6900, L500.4050, L506.0400, L3300.1750, L501.9520 #### [facility] [address] [place], [address] GAP 8 Normal 5-15 [facility] Comment on above: Order Comment: N Performed By: #### L 801.2600, L100.0100, L501.70274, L509.3000, L3300.6900, L500.4050, L506.0400, L3300.1750, L501.9520 #### [facility] [address] [place], [address] GFR/1.73 sq M.predicted among non-blacks MDRD (S/P/Bld) [Vol rate/Area] 67 mL/min/{1.73_m2} Normal >60 [facility] Comment on above: Order Comment: N Result Comment: Non- GFR Calc Performed By: #### L 801.2600, L100.0100, L501.58681, L509.3000, L3300.6900, L500.4050, L506.0400, L3300.1750, L501.9520 #### [facility] [address] [place], [address] Globulin (S) [Mass/Vol] 3.8 g/dL Normal 2.2-4.2 [facility] Comment on above: Order Comment: N Performed By: #### L 801.2600, L100.0100, L501.09949, L509.3000, L3300.6900, L500.4050, L506.0400, L3300.1750, L501.9520 #### [facility] [address] [place], [address] Glucose [Mass/Vol] 147 mg/dL High 74-106 [facility] Comment on above: Order Comment: N Result Comment: Fast ing Glucose result greater than or equal to 126 mg/dL suggests DIABETES MELLITUS per A.D.A. criteria. Performed By: #### L 801.2600, L100.0100, L501.46538, L509.3000, L3300.6900, L500.4050, L506.0400, L3300.1750, L501.9520 #### [facility] [address] [place], [address] Potassium [Moles/Vol] 3.6 mmol/L Normal 3.5-5.1 [facility] Comment on above: Order Comment: N Performed By: #### L 801.2600, L100.0100, L501.49221, L509.3000, L3300.6900, L500.4050, L506.0400, L3300.1750, L501.9520 #### [facility] [address] [place], [address] Sodium [Moles/Vol] 140 mmol/L Normal 136-145 [facility] Comment on above: Order Comment: N Performed By: #### L 801.2600, L100.0100, L501.49573, L509.3000, L3300.6900, L500.4050, L506.0400, L3300.1750, L501.9520 #### [facility] [address] [place], [address] T PROT 7.4 g/dL Normal 6.4-8.2 [facility] Comment on above: Order Comment: N Performed By: #### L 801.2600, L100.0100, L501.06082, L509.3000, L3300.6900, L500.4050, L506.0400, L3300.1750, L501.9520 #### [facility] [address] [place], [address] Urea nitrogen [Mass/Vol] 15 mg/dL Normal 7-18 [facility] Comment on above: Order Comment: N Performed By: #### L 801.2600, L100.0100, L501.16076, L509.3000, L3300.6900, L500.4050, L506.0400, L3300.1750, L501.9520 #### [facility] [address] [place], [address] Estradiolon 11--2023 ESTRADIOL 31.9 pg/mL Normal [facility] Comment on above: Order Comment: N Result Comment: NORM AL REFERENCE RANGES FEMALE FOLLICULAR 21.4 - 164.8 pg/mL MID-CYCLE PEAK 49.9 - 367.2 pg/mL LUTEAL 40.2 - 259.0 pg/mL POST-MENOPAUSAL ON MHT <11.0 - 462.1 pg/mL NOT ON MHT <11.0 - 58.3 pg/mL MALE <11.0 - 52.5 pg/mL NOTE: [employer] HAS CONFIRMED THE DRUG FULVETRANT (FASLODEX) MAY CAUSE FALSELY ELEVATED ESTRADIOL RESULTS WHEN USING THIS TEST METHOD. IF PATIENT IS TAKING FULVESTRANT AN ALTERNATIVE METHOD SHOULD BE USED TO DETERMINE ESTRADIOL CONCENTRATION. Performed By: #### L 801.2600, L100.0100, L501.34564, L509.3000, L3300.6900, L500.4050, L506.0400, L3300.1750, L501.9520 #### [facility] [address] [facility] [place], [place], [id number] Free T3on 03-02-2024 Free T3 [Mass/Vol] 2.3 pg/mL Normal 2.18-3.98 [facility] Comment on above: Order Comment: N Performed By: #### L 801.2600, L100.0100, L501.45575, L509.3000, L3300.6900, L500.4050, L506.0400, L3300.1750, L501.9520 #### [facility] [address] [facility] [place], [place], [id number] T4 Free Directon 03-02-2024 T4 FREE DIRECT 0.91 ng/dL Normal 0.76-1.46 [facility] Comment on above: Order Comment: N Performed By: #### L 801.2600, L100.0100, L501.32709, L509.3000, L3300.6900, L500.4050, L506.0400, L3300.1750, L501.9520 #### [facility] [address] [facility] [place], [place], [id number] Thyroid Stim Hormone (TSH)on 03-02-2024 TSH 3.480 uIU/mL Normal 0.358-3.740 [facility] Comment on above: Order Comment: N Performed By: #### L 801.2600, L100.0100, L501.62407, L509.3000, L3300.6900, L500.4050, L506.0400, L3300.1750, L501.9520 #### [facility] [address] [place], [place], [id number] Absolute lymphocyte countOrd ered By: Black Steele on 05-26-2023 Lymphocytes Auto (Unsp spec) [#/Vol] 3.33 10*3/uL 0.83-4.51 [facility] Automated lymphocyte count a s percentage of total leukocytesOrdered By: Black Steele on 05-26-2023 Lymphocytes/100 WBC Auto (Unsp spec) 39.7 % 19-41 [facility] Basophil percentageOrdered B y: Black Steele on 05-26-2023 Basophils/100 WBC (Bld) 0.6 % 0-1 [facility] Bilirubin [Mass/Vol] 0.40 mg/dL 0.20-1.00 [facility] Comment on above: For patients on eltr ombopag therapy, use of Dimension [place] TBIL is not recommended. Chloride [Moles/Vol] 107 mmol/L 98-107 [facility] Cholesterol [Mass/Vol] 186 mg/dL <200 [facility] Comment on above: <200 mg/dL Desirable 200-240 mg/dL Borderline >240 mg/dL High Risk Eosinophils/100 WBC (Bld) 2.9 % 0-5 [facility] Glucose [Mass/Vol] 132 mg/dL 74-106 [facility] Comment on above: Fasting Glucose resu lt greater than or equal to 126 mg/dL suggests DIABETES MELLITUS per A.D.A. criteria. Hemoglobin (Bld) [Mass/Vol] 15.3 g/dL 12.0-15.0 [facility] Monocytes/100 WBC (Bld) 7.2 % 0-10 [facility] Neutrophils (Bld) [#/Vol] 4.1 10*3/uL 2.0-7.7 [facility] Neutrophils/100 WBC (Bld) 49.1 % 47-70 [facility] Potassium [Moles/Vol] 4.0 mmol/L 3.5-5.1 [facility] Protein [Mass/Vol] 7.6 g/dL 6.4-8.2 [facility] Sodium [Moles/Vol] 140 mmol/L 136-145 [facility] Testosterone [Mass/Vol] 37.04 ng/dL [facility] Comment on above: CENTRAL 90% REFERENC E RANGES MALE AGE <50 197.44 - 669.58 ng/dL MALE AGE > or = 50 187.72 - 684.19 ng/dL FEMALE AGE <50 8.38 - 35.01 ng/dL FEMALE AGE > or = 50 <7.00 - 35.92 ng/dL Effective as of 11/03/20 Triglyceride [Mass/Vol] 204 mg/dL <199 [facility] Comment on above: The drugs N-Acetylcy steine and Metamizole may falsely depress this assay.Serum Triglycerides Reference Interval Normal <150 mg/dL Borderline high 150 - 199 mg/dL High 200 - 499 mg/dL Very High > or = 500 mg/dL WBC (Bld) [#/Vol] 8.4 10*3/uL 4.4-11.0 [facility] Determination of erythrocyte mean corpuscular volume (MCV)Ordered By: Black Steele on 05-26-2023 MCV (RBC) [Entitic vol] 89.0 fL 81-99 [facility] Erythrocyte distribution wid th ratioOrdered By: Black Steele on 05-26-2023 Erythrocyte distribution width (RBC) [Ratio] 12.3 % 11.6-14.6 [facility] Erythrocyte distribution wid th standard deviationOrdered By: Black Steele on 05-26-2023 Erythrocyte distribution width (RBC) [Entitic vol] 40.0 fL 35.1-43.9 [facility] Hematocrit Auto (Bld) [Volum e fraction]Ordered By: Black Steele on 05-26-2023 Hematocrit (Bld) [Volume fraction] 47.9 % 37-47 [facility] Immature granulocytes/100 WB C Auto (Bld)Ordered By: Black Steeel on 05-26-2023 Immature granulocytes/100 WBC (Bld) 0.500 % 0.0-0.9 [facility] Comment on above: IG% - Immature Granu locytes (promyelocytes, myelocytes and metamyelocytes) > 1% indicates that a LEFT SHIFT is Present. Laboratory - Chemistry and C hemistry - challengeOrdered By: Black Steele on 05-26-2023 Albumin/Globulin [Mass ratio] 0.9 {ratio} 0.9-2.4 [facility] ALP [Catalytic activity/Vol] 77 U/L 45-117 [facility] ALT [Catalytic activity/Vol] 29 U/L 13-56 [facility] Cholesterol in HDL [Mass/Vol] 48 mg/dL >40 [facility] Comment on above: The drugs N-Acetylcy steine and Metamizole may falsely depress this assay. Reference Range HDL <40 mg/dL Low HDL Cholesterol HDL >or= 60 mg/dL High HDL Cholesterol Cholesterol in LDL [Mass/Vol] 97 mg/dL 0-130 [facility] CO2 [Moles/Vol] 28.0 mmol/L 21.0-32.0 [facility] Globulin (S) [Mass/Vol] 4.0 g/dL 2.2-4.2 [facility] Urea nitrogen/Creatinine [Mass ratio] 16.7 mg/mg 10-20 [facility] - Hematology and Cell countsOrdered By: Black Steele on 05-26-2023 MCH (RBC) [Entitic mass] 28.4 pg 27.0-32.0 [facility] MCHC (RBC) [Mass/Vol] 31.9 g/dL 32-36 [facility] Nucleated RBC/100 WBC (Bld) [Ratio] 0 % 0-5 [facility] Platelet mean volume (Bld) [Entitic vol] 8.9 fL 6.2-12.0 [facility] Platelets (Bld) [#/Vol] 403 10*3/uL 150-450 [facility] No Panel InformationOrdered By: Black Steele on 05-26-2023 Estimated GFR (MDRD) Amer 76 mL/min >60 [facility] Comment on above: GFR Calc Estimated GFR (MDRD) Non-Af Amer 63 mL/min >60 [facility] Comment on above: Non- GFR Calc Free Triiodothyronine (T3) pg/dL 2.3 pg/mL 2.18-3.98 [facility] VLDL Cholesterol 41 mg/dL 5-40 [facility] RBC Auto (Bld) [#/Vol]Ordere d By: Black Steele on 05-26-2023 RBC (Bld) [#/Vol] 5.38 10*6/uL 4.2-5.4 [facility] Serum or plasma calcium david urement (mass/volume)Ordered By: Black Steele on 05-26-2023 Calcium [Mass/Vol] 9.2 mg/dL 8.5-10.1 [facility] Serum or plasma creatinine m easurement (mass/volume)Ordered By: Black Steele on 05-26-2023 Creatinine [Mass/Vol] 0.96 mg/dL 0.55-1.02 [facility] Comment on above: The validity of the calculated GFR & GFRAA in patients over 70 years has not been determined. Clinical correlation is essential. Serum or plasma homocysteine measurement (mass/volume)Ordered By: Black Steele on 05-26-2023 Homocysteine [Mass/Vol] 11.2 umol/L 3.2-10.7 [facility] Serum or plasma progesterone measurement (mass/volume)Ordered By: Black Steele on 05-26-2023 Progesterone [Mass/Vol] 0.71 ng/mL See Comment [facility] Comment on above: Progesterone Referen ce Table: UNITS Female: Follicular 0.15 - 1.40 ng/mL Luteal 3.34 - 25.56 ng/mL Mid-luteal 4.44 - 28.03 ng/mL Postmenopausal 0.0 - 0.73 ng/mL : 1st Trimester 11.22 - 90.00 ng/mL 2nd Trimester 25.55 - 89.40 ng/mL 3rd Trimester 48.40 -422.50 ng/mL Serum or plasma thyroid stim ulating hormone (TSH) measurement (units/volume)Ordered By: Black Steele on 05-26-2023 TSH Qn 5.39 uIU/mL 0.358-3.74 [facility] Serum or plasma thyroperoxid ase antibody assay (units/volume)Ordered By: Black Steele on 05-26-2023 TPO Ab Qn 9 [IU]/mL 0-34 [facility] Comment on above: Performed at: [address] [id number] Director: Magdaleno Mcnamara PhD, Phone: [phone] Serum or plasma urea nitroge n measurement (mass/volume)Ordered By: Black Steele on 05-26-2023 Urea nitrogen [Mass/Vol] 16 mg/dL 7-18 [facility] Thin prep Papanicolaou smear with manual screeningOrdered By: Black Steele on 05-26-2023 Thin prep Papanicolaou smear with manual screening 3.6 g/dL 3.2-5.0 [facility] Thin prep Papanicolaou smear with manual screening 24 U/L 15-37 [facility] Thin prep Papanicolaou smear with manual screening 5 5-15 [facility] Thin prep Papanicolaou smear with manual screening 0.87 ng/dL 0.76-1.46 [facility] Whole blood hemoglobin A1c/t otal hemoglobin ratio (mass fraction)Ordered By: Black Steele on 05-26-2023 HbA1c (Bld) [Mass fraction] 6.1 % 3.8-5.6 [facility] Comment on above: Normal < 5.7 % Predi abetic 5.7 - 6.4 % Diabetic >or= 6.5 % Please note range changes. Basophil percentageOrdered B y: Black Steele on 11-21-2022 Bilirubin [Mass/Vol] 0.40 mg/dL 0.20-1.00 [facility] Comment on above: For patients on eltr ombopag therapy, use of Dimension [place] TBIL is not recommended. Chloride [Moles/Vol] 109 mmol/L 98-107 [facility] Cholesterol [Mass/Vol] 192 mg/dL <200 [facility] Comment on above: <200 mg/dL Desirable 200-240 mg/dL Borderline >240 mg/dL High Risk Glucose [Mass/Vol] 119 mg/dL 74-106 [facility] Comment on above: Fasting Glucose resu lt from 100 to 125 mg/dL suggests IMPAIRED HOMEOSTASIS per A.D.A. criteria. Potassium [Moles/Vol] 3.6 mmol/L 3.5-5.1 [facility] Protein [Mass/Vol] 7.2 g/dL 6.4-8.2 [facility] Sodium [Moles/Vol] 142 mmol/L 136-145 [facility] Triglyceride [Mass/Vol] 195 mg/dL <199 [facility] Comment on above: The drugs N-Acetylcy steine and Metamizole may falsely depress this assay.Serum Triglycerides Reference Interval Normal <150 mg/dL Borderline high 150 - 199 mg/dL High 200 - 499 mg/dL Very High > or = 500 mg/dL Laboratory - Chemistry and C hemistry - challengeOrdered By: Black Steele on 11-21-2022 ALP [Catalytic activity/Vol] 71 U/L 45-117 [facility] ALT [Catalytic activity/Vol] 26 U/L 13-56 [facility] CO2 [Moles/Vol] 26.0 mmol/L 21.0-32.0 [facility] Globulin (S) [Mass/Vol] 3.9 g/dL 2.2-4.2 [facility] Urea nitrogen/Creatinine [Mass ratio] 13.6 mg/mg 10-20 [facility] No Panel InformationOrdered By: Black Steele on 11-21-2022 C-Peptide 3.5 ng/mL 1.1-4.4 [facility] Comment on above: C-Peptide reference interval is for fasting patients.Performed at: - [facility] [id number] Director: Magdaleno Mcnamara PhD, Phone: [phone] Estimated GFR (MDRD) Amer 93 mL/min >60 [facility] Comment on above: GFR Calc Estimated GFR (MDRD) Non-Af Amer 76 mL/min >60 [facility] Comment on above: Non- GFR Calc Serum or plasma albumin david urement (mass/volume)Ordered By: Black Steele on 11-21-2022 Albumin [Mass/Vol] 3.3 g/dL 3.2-5.0 [facility] Serum or plasma albumin/glob ulin mass ratioOrdered By: Black Steele on 11-21-2022 Albumin/Globulin [Mass ratio] 0.8 {ratio} 0.9-2.4 [facility] Serum or plasma calcium david urement (mass/volume)Ordered By: Black Steele on 11-21-2022 Calcium [Mass/Vol] 8.6 mg/dL 8.5-10.1 [facility] Serum or plasma cholesterol in HDL measurement (mass/volume)Ordered By: Black Steele on 11-21-2022 Cholesterol in HDL [Mass/Vol] 48 mg/dL >40 [facility] Comment on above: The drugs N-Acetylcy steine and Metamizole may falsely depress this assay. Reference Range HDL <40 mg/dL Low HDL Cholesterol HDL >or= 60 mg/dL High HDL Cholesterol Serum or plasma cholesterol in VLDL measurement (mass/volume)Ordered By: Black Steele on 11-21-2022 Cholesterol in VLDL [Mass/Vol] 39 mg/dL 5-40 [facility] Serum or plasma creatinine m easurement (mass/volume)Ordered By: Black Steele on 11-21-2022 Creatinine [Mass/Vol] 0.81 mg/dL 0.55-1.02 [facility] Comment on above: The validity of the calculated GFR & GFRAA in patients over 70 years has not been determined. Clinical correlation is essential. Serum or plasma low density lipoprotein (LDL) cholesterol measurement (mass/volume)Ordered By: Black Steele on 11-21-2022 Cholesterol in LDL [Mass/Vol] 105 mg/dL 0-130 [facility] Serum or plasma urea nitroge n measurement (mass/volume)Ordered By: Black Steele on 11-21-2022 Urea nitrogen [Mass/Vol] 11 mg/dL 7-18 [facility] Thin prep Papanicolaou smear with manual screeningOrdered By: Black Steele on 11-21-2022 Thin prep Papanicolaou smear with manual screening 21 U/L 15-37 [facility] Thin prep Papanicolaou smear with manual screening 7 5-15 [facility] Absolute lymphocyte countOrd ered By: Black Cedric on 10-28-2022 Lymphocytes Auto (Unsp spec) [#/Vol] 2.55 10*3/uL 0.83-4.51 [facility] Basophil percentageOrdered B y: Black Steele on 10-28-2022 Basophils/100 WBC (Bld) 0.8 % 0-1 [facility] Bilirubin [Mass/Vol] 0.30 mg/dL 0.20-1.00 [facility] Comment on above: For patients on eltr ombopag therapy, use of Dimension [place] TBIL is not recommended. Chloride [Moles/Vol] 105 mmol/L 98-107 [facility] Eosinophils/100 WBC (Bld) 2.9 % 0-5 [facility] Glucose [Mass/Vol] 115 mg/dL 74-106 [facility] Comment on above: Fasting Glucose resu lt from 100 to 125 mg/dL suggests IMPAIRED HOMEOSTASIS per A.D.A. criteria. Neutrophils (Bld) [#/Vol] 4.6 10*3/uL 2.0-7.7 [facility] Neutrophils/100 WBC (Bld) 57.4 % 47-70 [facility] Potassium [Moles/Vol] 4.0 mmol/L 3.5-5.1 [facility] Protein [Mass/Vol] 7.5 g/dL 6.4-8.2 [facility] Sodium [Moles/Vol] 140 mmol/L 136-145 [facility] Testosterone [Mass/Vol] 41.30 ng/dL [facility] Comment on above: CENTRAL 90% REFERENC E RANGES MALE AGE <50 197.44 - 669.58 ng/dL MALE AGE > or = 50 187.72 - 684.19 ng/dL FEMALE AGE <50 8.38 - 35.01 ng/dL FEMALE AGE > or = 50 <7.00 - 35.92 ng/dL Effective as of 11/03/20 WBC (Bld) [#/Vol] 8.0 10*3/uL 4.4-11.0 [facility] Blood erythrocytes count (nu mber/volume)Ordered By: Black Steele on 10-28-2022 RBC (Bld) [#/Vol] 5.26 10*6/uL 4.2-5.4 [facility] Blood hemoglobin measurement (mass/volume)Ordered By: Black Steele on 10-28-2022 Hemoglobin (Bld) [Mass/Vol] 14.9 g/dL 12.0-15.0 [facility] Blood lymphocytes/100 leukoc ytesOrdered By: Black Steele on 10-28-2022 Lymphocytes/100 WBC (Bld) 32.0 % 19-41 [facility] Blood monocytes/100 leukocyt esOrdered By: Black Steele on 10-28-2022 Monocytes/100 WBC (Bld) 6.4 % 0-10 [facility] Blood platelet mean volumeOr dered By: Black Steele on 10-28-2022 Platelet mean volume (Bld) [Entitic vol] 9.4 fL 6.2-12.0 [facility] Determination of erythrocyte mean corpuscular volume (MCV)Ordered By: Black Steele on 10-28-2022 MCV (RBC) [Entitic vol] 90.1 fL 81-99 [facility] Hematocrit Auto (Bld) [Volum e fraction]Ordered By: Black Steele on 10-28-2022 Hematocrit (Bld) [Volume fraction] 47.4 % 37-47 [facility] Laboratory - Chemistry and C hemistry - challengeOrdered By: Black Steele on 10-28-2022 ALP [Catalytic activity/Vol] 71 U/L 45-117 [facility] ALT [Catalytic activity/Vol] 32 U/L 13-56 [facility] CO2 [Moles/Vol] 29.0 mmol/L 21.0-32.0 [facility] Free T4 [Mass/Vol] 0.93 ng/dL 0.76-1.46 [facility] Globulin (S) [Mass/Vol] 3.9 g/dL 2.2-4.2 [facility] Urea nitrogen/Creatinine [Mass ratio] 20.3 mg/mg 10-20 [facility] - Hematology and Cell countsOrdered By: Black Steele on 10-28-2022 Erythrocyte distribution width (RBC) [Entitic vol] 41.1 fL 35.1-43.9 [facility] Erythrocyte distribution width (RBC) [Ratio] 12.5 % 11.6-14.6 [facility] Immature granulocytes/100 WBC (Bld) 0.500 % 0.0-0.9 [facility] Comment on above: IG% - Immature Granu locytes (promyelocytes, myelocytes and metamyelocytes) > 1% indicates that a LEFT SHIFT is Present. MCH (RBC) [Entitic mass] 28.3 pg 27.0-32.0 [facility] Nucleated RBC/100 WBC (Bld) [Ratio] 0 % 0-5 [facility] MCHC Auto (RBC) [Mass/Vol]Or dered By: Black Steele on 10-28-2022 MCHC (RBC) [Mass/Vol] 31.4 g/dL 32-36 [facility] No Panel InformationOrdered By: Black Steele on 10-28-2022 Estimated GFR (MDRD) Amer 95 mL/min >60 [facility] Comment on above: GFR Calc Estimated GFR (MDRD) Non-Af Amer 79 mL/min >60 [facility] Comment on above: Non- GFR Calc Free Triiodothyronine (T3) pg/dL 3.7 pg/mL 2.18-3.98 [facility] Thyroid Stimulating Hormone (TSH) 2.87 uIU/mL 0.358-3.74 [facility] Platelets bldOrdered By: Daljit Steele on 10-28-2022 Platelets (Bld) [#/Vol] 391 10*3/uL 150-450 [facility] Serum or plasma albumin david urement (mass/volume)Ordered By: Black Steele on 10-28-2022 Albumin [Mass/Vol] 3.6 g/dL 3.2-5.0 [facility] Serum or plasma albumin/glob ulin mass ratioOrdered By: Black Steele on 10-28-2022 Albumin/Globulin [Mass ratio] 0.9 {ratio} 0.9-2.4 [facility] Serum or plasma calcium david urement (mass/volume)Ordered By: Black Steele on 10-28-2022 Calcium [Mass/Vol] 9.0 mg/dL 8.5-10.1 [facility] Serum or plasma creatinine m easurement (mass/volume)Ordered By: Black Steele on 10-28-2022 Creatinine [Mass/Vol] 0.79 mg/dL 0.55-1.02 [facility] Comment on above: The validity of the calculated GFR & GFRAA in patients over 70 years has not been determined. Clinical correlation is essential. Serum or plasma estradiol (E 2) measurement (mass/volume)Ordered By: Black Steele on 10-28-2022 E2 [Mass/Vol] 36.6 pg/mL [facility] Comment on above: NORMAL REFERENCE RAN GES FEMALE FOLLICULAR 21.4 - 164.8 pg/mL MID-CYCLE PEAK 49.9 - 367.2 pg/mL LUTEAL 40.2 - 259.0 pg/mL POST-MENOPAUSAL ON MHT <11.0 - 462.1 pg/mL NOT ON MHT <11.0 - 58.3 pg/mL MALE <11.0 - 52.5 pg/mL NOTE:[employer] HAS CONFIRMED THE DRUG FULVETRANT (FASLODEX) MAY CAUSE FALSELY ELEVATED ESTRADIOL RESULTS WHEN USING THIS TEST METHOD. IF PATIENT IS TAKING FULVESTRANT AN ALTERNATIVE METHOD SHOULD BE USED TO DETERMINE ESTRADIOL CONCENTRATION. Serum or plasma progesterone measurement (mass/volume)Ordered By: Black Steele on 10-28-2022 Progesterone [Mass/Vol] 0.68 ng/mL See Comment [facility] Comment on above: Progesterone Referen ce Table: UNITS Female: Follicular 0.15 - 1.40 ng/mL Luteal 3.34 - 25.56 ng/mL Mid-luteal 4.44 - 28.03 ng/mL Postmenopausal 0.0 - 0.73 ng/mL : 1st Trimester 11.22 - 90.00 ng/mL 2nd Trimester 25.55 - 89.40 ng/mL 3rd Trimester 48.40 -422.50 ng/mL Serum or plasma thyroperoxid ase antibody assay (units/volume)Ordered By: Black Stelee on 10-28-2022 TPO Ab Qn [IU]/mL 0-34 [facility] Comment on above: Performed at: [address] [place], [place] [id number] Director: Magdaleno Mcnamara PhD, Phone: [phone] Serum or plasma urea nitroge n measurement (mass/volume)Ordered By: Black Steele on 10-28-2022 Urea nitrogen [Mass/Vol] 16 mg/dL 7-18 [facility] Thin prep Papanicolaou smear with manual screeningOrdered By: Black Steele on 10-28-2022 Thin prep Papanicolaou smear with manual screening 23 U/L 15-37 [facility] Thin prep Papanicolaou smear with manual screening 6 5-15 [facility] Absolute lymphocyte counton 10-13-2021 Lymphocytes Auto (Unsp spec) [#/Vol] 2.50 10*3/uL 0.83-4.51 [facility] Work Phone: Basophil percentageon 2021 Basophils/100 WBC (Bld) 0.6 % 0-1 [facility] Work Phone: Bilirubin [Mass/Vol] 0.30 mg/dL 0.20-1.00 [facility] Work Phone: Comment on above: For patients on eltr ombopag therapy, use of Dimension [place] TBIL is not recommended. Chloride [Moles/Vol] 106 mmol/L 98-107 [facility] Work Phone: Eosinophils/100 WBC (Bld) 3.6 % 0-5 [facility] Work Phone: Glucose [Mass/Vol] 126 mg/dL 74-106 [facility] Work Phone: Comment on above: Fasting Glucose resu lt greater than or equal to 126 mg/dL suggests DIABETES MELLITUS per A.D.A. criteria. Neutrophils (Bld) [#/Vol] 4.8 10*3/uL 2.0-7.7 [facility] Work Phone: [phone] Neutrophils/100 WBC (Bld) 58.0 % 47-70 [facility] Work Phone: Potassium [Moles/Vol] 4.0 mmol/L 3.5-5.1 [facility] Work Phone: Protein [Mass/Vol] 7.5 g/dL 6.4-8.2 [facility]: Sodium [Moles/Vol] 139 mmol/L 136-145 [facility] Work Phone: Testosterone [Mass/Vol] 39.73 ng/dL [facility] Work Phone: Comment on above: CENTRAL 90% REFERENC E RANGES MALE AGE <50 197.44 - 669.58 ng/dL MALE AGE > or = 50 187.72 - 684.19 ng/dL FEMALE AGE <50 8.38 - 35.01 ng/dL FEMALE AGE > or = 50 <7.00 - 35.92 ng/dL Effective as of 11/03/20 WBC (Bld) [#/Vol] 8.2 10*3/uL 4.4-11.0 [facility] Work Phone: Blood erythrocytes count (nu mber/volume)on 10-13-2021 RBC (Bld) [#/Vol] 5.30 10*6/uL 4.2-5.4 [facility] Work Phone: Blood hemoglobin measurement (mass/volume)on 10-13-2021 Hemoglobin (Bld) [Mass/Vol] 15.1 g/dL 12.0-15.0 [facility] Work Phone: Blood lymphocytes/100 leukoc yteson 10-13-2021 Lymphocytes/100 WBC (Bld) 30.3 % 19-41 [facility] Work Phone: Blood monocytes/100 leukocyt eson 10-13-2021 Monocytes/100 WBC (Bld) 6.8 % 0-10 [facility] Work Phone: Blood platelet mean volumeon 10-13-2021 Platelet mean volume (Bld) [Entitic vol] 8.7 fL 6.2-12.0 [facility] Work Phone: Determination of erythrocyte mean corpuscular volume (MCV)on 10-13-2021 MCV (RBC) [Entitic vol] 88.1 fL 81-99 [facility] Work Phone: Hematocrit Auto (Bld) [Volum e fraction]on 10-13-2021 Hematocrit (Bld) [Volume fraction] 46.7 % 37-47 [facility] Work Phone: Laboratory - Chemistry and C hemistry - challengeon 10-13-2021 ALP [Catalytic activity/Vol] 78 U/L 45-117 [facility] Work Phone: ALT [Catalytic activity/Vol] 33 U/L 13-56 [facility] Work Phone: CO2 [Moles/Vol] 27.0 mmol/L 21.0-32.0 [facility] Work Phone: Free T4 [Mass/Vol] 1.06 ng/dL 0.76-1.46 [facility] Work Phone: Globulin (S) [Mass/Vol] 4.0 g/dL 2.2-4.2 [facility] Work Phone: Urea nitrogen/Creatinine [Mass ratio] 12.0 mg/mg 10-20 [facility] Work Phone: Laboratory - Hematology and Cell countson 10-13-2021 Erythrocyte distribution width (RBC) [Entitic vol] 39.4 fL 35.1-43.9 [facility] Work Phone: Erythrocyte distribution width (RBC) [Ratio] 12.2 % 11.6-14.6 [facility] Work Phone: Immature granulocytes/100 WBC (Bld) 0.700 % 0.0-0.9 [facility] Work Phone: [phone] Comment on above: IG% - Immature Granu locytes (promyelocytes, myelocytes and metamyelocytes) > 1% indicates that a LEFT SHIFT is Present. MCH (RBC) [Entitic mass] 28.5 pg 27.0-32.0 [facility] Work Phone: Nucleated RBC/100 WBC (Bld) [Ratio] 0 % 0-5 [facility] Work Phone: MCHC Auto (RBC) [Mass/Vol]on 10-13-2021 MCHC (RBC) [Mass/Vol] 32.3 g/dL 32-36 [facility] Work Phone: No Panel Informationon 10-13 Dehydroepiandrosterone Sulfate 114.0 ug/dL 29.4-220.5 [facility] Work Phone: Estimated GFR (MDRD) Amer 80 mL/min >60 [facility] Work Phone: Comment on above: GFR Calc Estimated GFR (MDRD) Non-Af Amer 66 mL/min >60 [facility] Work Phone: Comment on above: Non- GFR Calc Free Triiodothyronine (T3) pg/dL 3.8 pg/mL 2.18-3.98 [facility] Work Phone: Thyroid Stimulating Hormone (TSH) 2.97 uIU/mL 0.358-3.74 [facility] Work Phone: Platelets bldon 10-13-2021 Platelets (Bld) [#/Vol] 356 10*3/uL 150-450 [facility] Work Phone: Serum or plasma albumin david urement (mass/volume)on 10-13-2021 Albumin [Mass/Vol] 3.5 g/dL 3.2-5.0 [facility] Work Phone: Serum or plasma albumin/glob ulin mass ratioon 10-13-2021 Albumin/Globulin [Mass ratio] 0.9 {ratio} 0.9-2.4 [facility] Work Phone: Serum or plasma calcium david urement (mass/volume)on 10-13-2021 Calcium [Mass/Vol] 9.0 mg/dL 8.5-10.1 [facility] Work Phone: Serum or plasma creatinine m easurement (mass/volume)on 10-13-2021 Creatinine [Mass/Vol] 0.92 mg/dL 0.55-1.02 [facility] Work Phone: Comment on above: The validity of the calculated GFR & GFRAA in patients over 70 years has not been determined. Clinical correlation is essential. Serum or plasma estradiol (E 2) measurement (mass/volume)on 10-13-2021 E2 [Mass/Vol] 40.4 pg/mL [facility] Work Phone: Comment on above: NORMAL REFERENCE RAN GES FEMALE FOLLICULAR 21.4 - 164.8 pg/mL MID-CYCLE PEAK 49.9 - 367.2 pg/mL LUTEAL 40.2 - 259.0 pg/mL POST-MENOPAUSAL ON MHT <11.0 - 462.1 pg/mL NOT ON MHT <11.0 - 58.3 pg/mL MALE <11.0 - 52.5 pg/mL NOTE:[employer] HAS CONFIRMED THE DRUG FULVETRANT (FASLODEX) MAY CAUSE FALSELY ELEVATED ESTRADIOL RESULTS WHEN USING THIS TEST METHOD. IF PATIENT IS TAKING FULVESTRANT AN ALTERNATIVE METHOD SHOULD BE USED TO DETERMINE ESTRADIOL CONCENTRATION. Serum or plasma progesterone measurement (mass/volume)on 10-13-2021 Progesterone [Mass/Vol] 0.53 ng/mL See Comment [facility] Work Phone: Comment on above: Progesterone Referen ce Table: UNITS Female: Follicular 0.15 - 1.40 ng/mL Luteal 3.34 - 25.56 ng/mL Mid-luteal 4.44 - 28.03 ng/mL Postmenopausal 0.0 - 0.73 ng/mL : 1st Trimester 11.22 - 90.00 ng/mL 2nd Trimester 25.55 - 89.40 ng/mL 3rd Trimester 48.40 -422.50 ng/mL Serum or plasma thyroperoxid ase antibody assay (units/volume)on 10-13-2021 TPO Ab Qn [IU]/mL 0-34 [facility] Work Phone: Comment on above: Performed at: - [facility] [place], [place] [id number] Director: Magdaleno Mcnamara PhD, Phone: [phone] Serum or plasma urea nitroge n measurement (mass/volume)on 10-13-2021 Urea nitrogen [Mass/Vol] 11 mg/dL 7-18 [facility] Work Phone: Thin prep Papanicolaou smear with manual screeningon 10-13-2021 Thin prep Papanicolaou smear with manual screening 25 U/L 15-37 [facility] Work Phone: Thin prep Papanicolaou smear with manual screening 6 5-15 [facility] Work Phone: Encounters Encounter Date Encounter Type Care Provider Facility Start: 08-02-2024 End: 08-02-2024 ambulatory No Primary Care Physician Facility:[facility] Start: 05-06-2024 End: 05-06-2024 ambulatory No Primary Care Physician Facility:[facility] Start: 03-02-2024 End: 03-02-2024 ambulatory No Primary Care Physician Facility:[facility] Start: 05-26-2023 End: 05-26-2023 ambulatory [facility] Work Phone: Start: 05-26-2023 End: 05-26-2023 Patient encounter procedure [facility] Work Phone: Start: 11-21-2022 End: 11-21-2022 ambulatory [facility] Work Phone: Start: 11-21-2022 End: 11-21-2022 Patient encounter procedure [facility] Work Phone: Start: 10-28-2022 End: 10-28-2022 Patient encounter procedure [facility] Work Phone: Start: 10-13-2021 End: 10-13-2021 Patient encounter procedure [facility] Payers Date Payer Category Payer Self-pay [id number] 2024 Unknown [id number] 2013 Private Health Insurance [id number] Unknown [id number] Unknown [id number] Unknown [id number] Social History Date Type Detail Facility Start: 07-08-2013 End: 07-08-2013 Tobacco smoking status NHIS Unknown if ever smoked [facility] Start: 1960 Sex Assigned At Female [facility] Evaluation note Note Date & Type Note Facility Evaluation note No assessment information availa ble [facility] Work Phone: Summary Purpose Family History No Family History Records Found Advance Directives No Advanced Directives Records Found Additional Source Comments Goals (unrecognized section and content) Goals may be documented in a n alternate sectionGoals may be documented in an alternate sectionGoals may be documented in an alternate section Care Teams (unrecognized sec tion and content) Team Status: Active Member Role Status Dates No Primary Care Physician Family Provider Active No Primary Care Physician Primary Care Provider Active Team Status: Inactive Member Role Status Dates No Primary Care Physician Primary Care Provider Active Dr. Black Steele MD Attending Provider, Referring Provider Active INFORMATION SOURCE (unrecogn ized section and content) DATE CREATED AUTHOR 08/12/2024 [facility] FOR RECORDS PERTAINING TO PATIENTS WHO ARE OR HAVE BEEN ENROLLED IN A CHEMICAL DEPENDENCY/SUBSTANCEABUSE PROGRAM, SOME INFORMATION MAY BE OMITTED. This clinical summary was aggregated from multiple sources. Caution should be exercised in using it in the provision of clinical care. This summary normalizes information from multiple sources, and as a consequence, information in this document may materially change the coding, format and clinical context of patient data. In addition, data may be omitted in some cases. CLINICAL DECISIONS SHOULD BE BASED ON THE PRIMARY CLINICAL RECORDS. [facility] [employer] [facility]. provides no warranty or guarantee of the accuracy or completeness of information in this document.
[2024-10-25 07:39] LABS: Hematocrit 45.3 % (37-47); Hemoglobin 15.0 g/dL (12.0-15.0); Immature Granulocytes Count 0.040 X10^3/uL (0.0-0.0); Mean Corp Hgb Conc 33.1 g/dL (32-36); Mean Corpuscular Volume 86.0 fL (81-99); Mean Platelet Vol. 8.8 fl (6.2-12.0); NRBC Flagged by Analyzer 0 % (0-5); Platelet Count 338 K/mm3 (150-450); RBC Distribution Width CV 12.9 % (11.6-14.6); RBC Distribution Width SD 40.0 fl (35.1-43.9); Red Blood Count 5.27 M/mm3 (4.2-5.4); White Blood Count 8.1 K/mm3 (4.4-11.0)
[2024-10-25 08:08] LABS: AST(SGOT) 23 U/L (<=31); Alanine Aminotransfer ALT/SGPT 21 U/L (<=34); Albumin, Serum 4.1 g/dL (3.4-4.8); Alkaline Phosphatase 66 U/L (35-104); Anion Gap 10 (5-15); BUN 18 mg/dL (4-19); BUN/Creat Ratio 22.5 RATIO (10-20); Calcium,Total 9.3 mg/dL (7.6-11.0); Carbon Dioxide 24.9 mmol/L (21.0-32.0); Chloride 106 mmol/L (98-108); Globulin 3.0 g/dL (2.2-4.2); Glucose 107 mg/dL (70-99); Potassium 4.3 mmol/L (3.3-5.1)
[2024-10-26 04:07] LABS: HOMOCYSTEINE 12.5 umol/L (0.0-17.2)
== END | disposition home or self-care (01) ==
LOC: LAB 07:13
PROVIDERS: Referring Provider Preventive Medicine Public Health & General Preventive Medicine; Visit Provider Preventive Medicine Public Health & General Preventive Medicine
DX: E16.2 Hypoglycemia, unspecified (principal); R65.10 Systemic inflammatory response syndrome (SIRS) of non-infectious origin without acute organ dysfunction; N95.1 Menopausal and female climacteric states
CPT/HCPCS: 36415; 80053; 83036; 83090; 84681; 85025

== ENCOUNTER → 2025-02-24 | Outpatient (CLI) | payer BC, SELFPAY ==
--- OUTSIDE RECORDS SUMMARY | 2025-02-24 07:27 | XMS RPT_ITS | CCD ---
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 Cleaning Attending Provider Cedric DELA CRUZ, Dr. Cleaning Referring Provider Cedric, Black Attending Unavailable Cedric, Black Referring Unavailable Care Physician, No Primary Primary Care Unava ilable Care Physician, No Primary Primary Care Unava ilable Cedric, Black Attending Unavailable Cedric, Black Referring Unavailable Cedric, Black Attending Unavailable Cedric, Black Referring Unavailable Care Physician, No Primary Primary Care Unava ilable Cedric, Black Referring Unavailable Cedric, Black Attending Unavailable Care Physician, No Primary Primary Care Unava ilable Problems Problem Classification Problem Date Documented Da te Episodic/Chronic Diabetes mellitus with complications (1 source) 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 Performed at: - [facility] [id number] Fitness Technician: Magdaleno Mcnamara PhD, Phone: [phone] Performed By: #### L 509.3000, L801.2600, L100.0100, L500.4050, L501.26120, L501.9520, L506.0400, L3300.1750, L3300.6900 #### [facility] [address] [facility]. [place], [place], [id number] L803.0600on 10-26-2024 HOMOCYSTEINE 12.5 umol/L Normal 0.0-17.2 [facility] Comment on above: Result Comment: Perf ormed at: [facility] [address] [id number] Fitness Technician: Magdaleno Mcnamara PhD, Phone: [phone] Performed By: #### L 509.3000, L801.2600, L100.0100, L500.4050, L501.88354, L501.9520, L506.0400, L3300.1750, L3300.6900 #### [facility] [address] [facility]. [place], [place], [id number] Absolute lymphocyte countOrd ered By: Black Steele on 10-25-2024 Lymphocytes Auto (Unsp spec) [#/Vol] 2.77 10*3/uL 0.83-4.51 [facility] Absolute neutrophil countOrd ered By: Black Steele on 10-25-2024 Neutrophils (Bld) [#/Vol] 4.2 10*3/uL 2.0-7.7 [facility] Anion gap in Serum or Plasma Ordered By: Black Steele on 10-25-2024 Anion gap [Moles/Vol] 10 mmol/L 5-15 [facility] Automated lymphocyte count a s percentage of total leukocytesOrdered By: Black Steele on 10-25-2024 Lymphocytes/100 WBC Auto (Unsp spec) 34.2 % - [facility] BUN/creatinine ratioOrdered By: Black Steele on 10-25-2024 Urea nitrogen/Creatinine [Mass ratio] 22.5 mg/mg High 10-20 [facility] Basophil percentageOrdered B y: Black Steele on 10-25-2024 Basophils/100 WBC (Bld) 0.9 % 0-1 [facility] Bilirubin, totalOrdered By: Black Steele on 10-25-2024 Bilirubin [Mass/Vol] 0.32 mg/dL 0.00-1.30 [facility] CBC W/Diff, Automatedon 10-08 Absolute Lymph 2.77 X10 3/uL Normal 0.83-4.51 [facility] Comment on above: Performed By: #### L 509.3000, L801.2600, L100.0100, L500.4050, L501.13733, L501.9520, L506.0400, L3300.1750, L3300.6900 #### [facility] [address] [place], [address] ([address] Absolute Neut 4.2 X10 3/uL Normal 2.0-7.7 [facility] Comment on above: Performed By: #### L 509.3000, L801.2600, L100.0100, L500.4050, L501.32326, L501.9520, L506.0400, L3300.1750, L3300.6900 #### [facility] [address] [facility] [place], [address] Basophils/100 WBC (Bld) 0.9 % Normal 0-1 [facility] Comment on above: Performed By: #### L 509.3000, L801.2600, L100.0100, L500.4050, L501.25156, L501.9520, L506.0400, L3300.1750, L3300.6900 #### [facility] [address] [facility] [place], [address] Eosinophils/100 WBC (Bld) 7.3 % High 0-5 [facility] Comment on above: Performed By: #### L 509.3000, L801.2600, L100.0100, L500.4050, L501.90766, L501.9520, L506.0400, L3300.1750, L3300.6900 #### [facility] [address] [facility] [place], [address] (927) Erythrocyte distribution width (RBC) [Ratio] 12.9 % Normal 11.6-14.6 [facility] Comment on above: Performed By: #### L 509.3000, L801.2600, L100.0100, L500.4050, L501.47432, L501.9520, L506.0400, L3300.1750, L3300.6900 #### [facility] [address] [facility] [place], [address] (121) Hematocrit (Bld) [Volume fraction] 45.3 % Normal 37-47 [facility] Comment on above: Performed By: #### L 509.3000, L801.2600, L100.0100, L500.4050, L501.25073, L501.9520, L506.0400, L3300.1750, L3300.6900 #### [facility] [address] [facility] [place], [address] Hemoglobin (Bld) [Mass/Vol] 15.0 g/dL Normal 12.0-15.0 [facility] Comment on above: Performed By: #### L 509.3000, L801.2600, L100.0100, L500.4050, L501.90139, L501.9520, L506.0400, L3300.1750, L3300.6900 #### [facility] [address] [facility] [place], [address] IG% 0.500 Normal 0.0-0.9 [facility] Comment on above: Result Comment: IG% - Immature Granulocytes (promyelocytes, myelocytes and metamyelocytes) > 1% indicates that a LEFT SHIFT is Present. Performed By: #### L 509.3000, L801.2600, L100.0100, L500.4050, L501.29536, L501.9520, L506.0400, L3300.1750, L3300.6900 #### [facility] [address], [address] ( Lymphocytes/100 WBC (Bld) 34.2 % Normal 19-41 [facility] Comment on above: Performed By: #### L 509.3000, L801.2600, L100.0100, L500.4050, L501.22735, L501.9520, L506.0400, L3300.1750, L3300.6900 #### [facility] [address] [facility] [place], [address] MCH (RBC) [Entitic mass] 28.5 pg Normal 27.0-32.0 [facility] Comment on above: Performed By: #### L 509.3000, L801.2600, L100.0100, L500.4050, L501.06841, L501.9520, L506.0400, L3300.1750, L3300.6900 #### [facility] [address] [facility] [place], [address] ( MCHC (RBC) [Mass/Vol] 33.1 g/dL Normal 32-36 [facility] Comment on above: Performed By: #### L 509.3000, L801.2600, L100.0100, L500.4050, L501.26207, L501.9520, L506.0400, L3300.1750, L3300.6900 #### [facility] [address] [place], [address] ( MCV (RBC) [Entitic vol] 86.0 fL Normal 81-99 [facility] Comment on above: Performed By: #### L 509.3000, L801.2600, L100.0100, L500.4050, L501.88891, L501.9520, L506.0400, L3300.1750, L3300.6900 #### [facility] [address] [place], [address] Monocytes/100 WBC (Bld) 5.6 % Normal 0-10 [facility] Comment on above: Performed By: #### L 509.3000, L801.2600, L100.0100, L500.4050, L501.03420, L501.9520, L506.0400, L3300.1750, L3300.6900 #### [facility] [address] [place], [address] Neutrophils/100 WBC (Bld) 51.5 % Normal 47-70 [facility] Comment on above: Performed By: #### L 509.3000, L801.2600, L100.0100, L500.4050, L501.59957, L501.9520, L506.0400, L3300.1750, L3300.6900 #### [facility] [address] [place], [address] Nucleated RBC (Bld) [#/Vol] 0 10*3/uL Normal 0-5 [facility] Comment on above: Performed By: #### L 509.3000, L801.2600, L100.0100, L500.4050, L501.35745, L501.9520, L506.0400, L3300.1750, L3300.6900 #### [facility] [address] [place], [address] Platelet mean volume (Bld) [Entitic vol] 8.8 fL Normal 6.2-12.0 [facility] Comment on above: Performed By: #### L 509.3000, L801.2600, L100.0100, L500.4050, L501.50337, L501.9520, L506.0400, L3300.1750, L3300.6900 #### [facility] [address] [place], [address] Platelets (Bld) [#/Vol] 338 10*3/uL Normal 150-450 [facility] Comment on above: Performed By: #### L 509.3000, L801.2600, L100.0100, L500.4050, L501.38436, L501.9520, L506.0400, L3300.1750, L3300.6900 #### [facility] [address] [place], [address] RBC (Bld) [#/Vol] 5.27 10*6/uL Normal 4.2-5.4 [facility] Comment on above: Performed By: #### L 509.3000, L801.2600, L100.0100, L500.4050, L501.35305, L501.9520, L506.0400, L3300.1750, L3300.6900 #### [facility] [address] [place], [address] RDW SD 40.0 fl Normal 35.1-43.9 [facility] Comment on above: Performed By: #### L 509.3000, L801.2600, L100.0100, L500.4050, L501.82183, L501.9520, L506.0400, L3300.1750, L3300.6900 #### [facility] [address] [place], [address] WBC (Bld) [#/Vol] 8.1 10*3/uL Normal 4.4-11.0 [facility] Comment on above: Performed By: #### L 509.3000, L801.2600, L100.0100, L500.4050, L501.28300, L501.9520, L506.0400, L3300.1750, L3300.6900 #### [facility] [address] [place], [place], [id number] Carbon dioxide, total [Moles /volume] in Central venous bloodOrdered By: Black Steele on 10-25-2024 CO2 [Moles/Vol] 24.9 mmol/L 21.0-32.0 [facility] Chloride assayOrdered By: Ramon Steele on 10-25-2024 Chloride [Moles/Vol] 106 mmol/L 98-108 [facility] Comprehensive Metabolic Prof ilon 10-25-2024 Albumin [Mass/Vol] 4.1 g/dL Normal 3.4-4.8 [facility] Comment on above: Performed By: #### L 509.3000, L801.2600, L100.0100, L500.4050, L501.28835, L501.9520, L506.0400, L3300.1750, L3300.6900 #### [facility] [address] [place], [address] ([address]) Albumin/Globulin [Mass ratio] 1.3 {ratio} Normal 0.9-2.4 [facility] Comment on above: Performed By: #### L 509.3000, L801.2600, L100.0100, L500.4050, L501.68113, L501.9520, L506.0400, L3300.1750, L3300.6900 #### [facility] [address] [place], [address] ALK PHOS 66 U/L Normal 35-104 [facility] Comment on above: Performed By: #### L 509.3000, L801.2600, L100.0100, L500.4050, L501.90003, L501.9520, L506.0400, L3300.1750, L3300.6900 #### [facility] [address] [place], [place], [id number] (619) ALT [Catalytic activity/Vol] 21 U/L Normal <=34 [facility] Comment on above: Performed By: #### L 509.3000, L801.2600, L100.0100, L500.4050, L501.13836, L501.9520, L506.0400, L3300.1750, L3300.6900 #### [facility] [address] [place], [address] AST [Catalytic activity/Vol] 23 U/L Normal <=31 [facility] Comment on above: Performed By: #### L 509.3000, L801.2600, L100.0100, L500.4050, L501.05494, L501.9520, L506.0400, L3300.1750, L3300.6900 #### [facility] [address] [place], [address] Bilirubin [Mass/Vol] 0.32 mg/dL Normal 0.00-1.30 [facility] Comment on above: Performed By: #### L 509.3000, L801.2600, L100.0100, L500.4050, L501.79355, L501.9520, L506.0400, L3300.1750, L3300.6900 #### [facility] [address] [place], [address] BUN/CRE 22.5 RATIO High 10-20 [facility] Comment on above: Performed By: #### L 509.3000, L801.2600, L100.0100, L500.4050, L501.25158, L501.9520, L506.0400, L3300.1750, L3300.6900 #### [facility] [address] [place], [address] Calcium [Mass/Vol] 9.3 mg/dL Normal 7.6-11.0 [facility] Comment on above: Performed By: #### L 509.3000, L801.2600, L100.0100, L500.4050, L501.06343, L501.9520, L506.0400, L3300.1750, L3300.6900 #### [facility] [address] [place], [place], [phone] ([address]) Chloride [Moles/Vol] 106 mmol/L Normal 98-108 [facility] Comment on above: Performed By: #### L 509.3000, L801.2600, L100.0100, L500.4050, L501.10984, L501.9520, L506.0400, L3300.1750, L3300.6900 #### [facility] [address] [place], [place], [phone] (924) CO2 [Moles/Vol] 24.9 mmol/L Normal 21.0-32.0 [facility] Comment on above: Performed By: #### L 509.3000, L801.2600, L100.0100, L500.4050, L501.19017, L501.9520, L506.0400, L3300.1750, L3300.6900 #### [facility] [address] [place], [place], [id number] Creatinine [Mass/Vol] 0.79 mg/dL Normal 0.70-1.20 [facility] Comment on above: Performed By: #### L 509.3000, L801.2600, L100.0100, L500.4050, L501.60459, L501.9520, L506.0400, L3300.1750, L3300.6900 #### [facility] [address] [place], [address] GAP 10 Normal 5-15 [facility] Comment on above: Performed By: #### L 509.3000, L801.2600, L100.0100, L500.4050, L501.80591, L501.9520, L506.0400, L3300.1750, L3300.6900 #### [facility] [address] [place], [address] GFR/1.73 sq M.predicted among non-blacks MDRD (S/P/Bld) [Vol rate/Area] 85 mL/min/{1.73_m2} Normal >60 [facility] Comment on above: Result Comment: mL/m in/1.73m2 CKD-EPI Creatinine Equation (2020) Performed By: #### L 509.3000, L801.2600, L100.0100, L500.4050, L501.00807, L501.9520, L506.0400, L3300.1750, L3300.6900 #### [facility] [address] [place], [address] (271) Globulin (S) [Mass/Vol] 3.0 g/dL Normal 2.2-4.2 [facility] Comment on above: Performed By: #### L 509.3000, L801.2600, L100.0100, L500.4050, L501.95104, L501.9520, L506.0400, L3300.1750, L3300.6900 #### [facility] [address] [place], [address] Glucose [Mass/Vol] 107 mg/dL High 70-99 [facility] Comment on above: Performed By: #### L 509.3000, L801.2600, L100.0100, L500.4050, L501.67937, L501.9520, L506.0400, L3300.1750, L3300.6900 #### [facility] [address] [place], [address] ( Potassium [Moles/Vol] 4.3 mmol/L Normal 3.3-5.1 [facility] Comment on above: Performed By: #### L 509.3000, L801.2600, L100.0100, L500.4050, L501.03069, L501.9520, L506.0400, L3300.1750, L3300.6900 #### [facility] [address] [place], [place], [phone] (913) Sodium [Moles/Vol] 141 mmol/L Normal 133-145 [facility] Comment on above: Performed By: #### L 509.3000, L801.2600, L100.0100, L500.4050, L501.29945, L501.9520, L506.0400, L3300.1750, L3300.6900 #### [facility] [address] [place], [address] T PROT 7.1 g/dL Normal 5.9-8.4 [facility] Comment on above: Performed By: #### L 509.3000, L801.2600, L100.0100, L500.4050, L501.62667, L501.9520, L506.0400, L3300.1750, L3300.6900 #### [facility] [address] [place], [address] Urea nitrogen [Mass/Vol] 18 mg/dL Normal 4-19 [facility] Comment on above: Performed By: #### L 509.3000, L801.2600, L100.0100, L500.4050, L501.23280, L501.9520, L506.0400, L3300.1750, L3300.6900 #### [facility] [address] [place], [address] Eosinophil percentageOrdered By: Black Steele on 10-25-2024 Eosinophils/100 WBC (Bld) 7.3 % High 0-5 [facility] Erythrocyte distribution wid th ratioOrdered By: Black Steele on 10-25-2024 Erythrocyte distribution width (RBC) [Ratio] 12.9 % 11.6-14.6 [facility] Erythrocyte distribution wid th standard deviationOrdered By: Black Steele on 10-25-2024 Erythrocyte distribution width (RBC) [Ratio] 40.0 fl 35.1-43.9 [facility] Glomerular filtration rate ( GFR) estimation/1.73 sq m using serum, plasma, or whole bOrdered By: Black Steele on 10-25-2024 GFR/1.73 sq M.predicted among non-blacks MDRD (S/P/Bld) [Vol rate/Area] 85 mL/min/{1.73_m2} >60 [facility] Comment on above: mL/min/1.73m2 CKD-EP I Creatinine Equation (2020) Hematocrit Auto (Bld) [Volum e fraction]Ordered By: Black Steele on 10-25-2024 Hematocrit (Bld) [Volume fraction] 45.3 % 37-47 [facility] Hemoglobin A1con 10-25-2024 HbA1c (Bld) [Mass fraction] 5.6 % Normal <=5.6 [facility] Comment on above: Result Comment: Norm al < 5.7 % Prediabetic 5.7 - 6.4 % Diabetic >or= 6.5 % Please note range changes. Performed By: #### L 509.3000, L801.2600, L100.0100, L500.4050, L501.84222, L501.9520, L506.0400, L3300.1750, L3300.6900 #### [facility] [address] [place], [address] Hemoglobin A1c percentageOrd ered By: Black Steele on 10-25-2024 HbA1c (Bld) [Mass fraction] 5.6 % <5.7 [facility] Comment on above: Normal < 5.7 % Predi abetic 5.7 - 6.4 % Diabetic >or= 6.5 % Please note range changes. Hemoglobin measurementOrdere d By: Black Steele on 10-25-2024 Hemoglobin (Bld) [Mass/Vol] 15.0 g/dL 12.0-15.0 [facility] Immature granulocytes/100 WB C Auto (Bld)Ordered By: Black Steele on 10-25-2024 Immature granulocytes/100 WBC (Bld) 0.500 % 0.0-0.9 [facility] Comment on above: IG% - Immature Granu locytes (promyelocytes, myelocytes and metamyelocytes) > 1% indicates that a LEFT SHIFT is Present. Laboratory - Chemistry and C hemistry - challengeOrdered By: Black Steele on 10-25-2024 AST [Catalytic activity/Vol] 23 U/L <32 [facility] MCV (mean corpuscular volume ) determinationOrdered By: Black Steele on 10-25-2024 MCV (RBC) [Entitic vol] 86.0 fL 81-99 [facility] Mean corpuscular hemoglobin (MCH) determinationOrdered By: Black Steele on 10-25-2024 MCH (RBC) [Entitic mass] 28.5 pg 27.0-32.0 [facility] Mean corpuscular hemoglobin concentration (MCHC) determinationOrdered By: Black Steele on 10-25-2024 MCHC (RBC) [Mass/Vol] 33.1 g/dL 32-36 [facility] Mean platelet volume determi nationOrdered By: Black Steele on 10-25-2024 Platelet mean volume (Bld) [Entitic vol] 8.8 fL 6.2-12.0 [facility] Monocyte percentageOrdered B y: Black Steele on 10-25-2024 Monocytes/100 WBC (Bld) 5.6 % 0-10 [facility] Neutrophil percentageOrdered By: Black Steele on 10-25-2024 Neutrophils/100 WBC (Bld) 51.5 % 47-70 [facility] Nucleated red blood cell per centageOrdered By: Black Steele on 10-25-2024 Nucleated RBC/100 WBC (Bld) [Ratio] 0 % 0-5 [facility] Platelet countOrdered By: Ramon Steele on 10-25-2024 Platelets (Bld) [#/Vol] 338 10*3/uL 150-450 [facility] Potassium measurement (mass/ volume)Ordered By: Black Steele on 10-25-2024 Potassium (Unsp spec) [Mass/Vol] 4.3 mmol/L 3.3-5.1 [facility] RBC Auto (Bld) [#/Vol]Ordere d By: Black Steele on 10-25-2024 RBC (Bld) [#/Vol] 5.27 10*6/uL 4.2-5.4 [facility] Serum creatinine measurement (mass/volume)Ordered By: Black Steele on 10-25-2024 Creatinine [Mass/Vol] 0.79 mg/dL 0.70-1.20 [facility] Serum globulin measurementOr dered By: Black Steele on 10-25-2024 Globulin (S) [Mass/Vol] 3.0 g/dL 2.2-4.2 [facility] Serum glucose measurement (m ass/volume)Ordered By: Black Steele on 10-25-2024 Glucose [Mass/Vol] 107 mg/dL High 70-99 [facility] Serum or plasma alanine celaya otransferase (ALT) measurementOrdered By: Black Steele on 10-25-2024 ALT [Catalytic activity/Vol] 21 U/L <35 [facility] Serum or plasma albumin david urement (mass/volume)Ordered By: Black Steele on 10-25-2024 Albumin [Mass/Vol] 4.1 g/dL 3.4-4.8 [facility] Serum or plasma albumin/glob ulin mass ratioOrdered By: Black Steele on 10-25-2024 Albumin/Globulin [Mass ratio] 1.3 {ratio} 0.9-2.4 [facility] Serum or plasma alkaline martha sphatase measurementOrdered By: Black Steele on 10-25-2024 ALP [Catalytic activity/Vol] 66 U/L 35-104 [facility] Serum or plasma calcium david urement (mass/volume)Ordered By: Black Steele on 10-25-2024 Calcium [Mass/Vol] 9.3 mg/dL 7.6-11.0 [facility] Serum or plasma urea nitroge n measurement (mass/volume)Ordered By: Black Steele on 10-25-2024 Urea nitrogen [Mass/Vol] 18 mg/dL 4-19 [facility] Sodium levelOrdered By: Misael Steele on 10-25-2024 Sodium [Moles/Vol] 141 mmol/L 133-145 [facility] Total proteinOrdered By: Daljit Steele on 10-25-2024 Protein [Mass/Vol] 7.1 g/dL 5.9-8.4 [facility] White blood cell (WBC) count Ordered By: Black Lunanie on 10-25-2024 WBC (Bld) [#/Vol] 8.1 10*3/uL 4.4-11.0 [facility] C-Peptideon 08-03-2024 C PEPTIDE 3.7 ng/mL Normal 1.1-4.4 [facility] Comment on above: Result Comment: C-Pe ptide reference interval is for fasting patients. Performed at: [facility] [id number] Fitness Technician: Magdaleno Mcnamara PhD, Phone: [phone] Performed By: #### L 509.3000, L801.2600, L100.0100, L500.4050, L501.52463, L501.9520, L506.0400, L3300.1750, L3300.6900 #### [facility] [address] [place], [place], [id number] Absolute lymphocyte countOrd ered By: Black Cedric on 08-02-2024 Lymphocytes Auto (Unsp spec) [#/Vol] 2.82 10*3/uL 0.83-4.51 [facility] Absolute neutrophil countOrd ered By: Black Cedric on 08-02-2024 Neutrophils (Bld) [#/Vol] 4.1 10*3/uL 2.0-7.7 [facility] Anion gap in Serum or Plasma Ordered By: Black Cedric on 08-02-2024 Anion gap [Moles/Vol] 11 mmol/L 5-15 [facility] Automated lymphocyte count a s percentage of total leukocytesOrdered By: Black Steele on 08-02-2024 Lymphocytes/100 WBC Auto (Unsp spec) 35.5 % 19-41 [facility] BUN/creatinine ratioOrdered By: Black Steele on 08-02-2024 Urea nitrogen/Creatinine [Mass ratio] 17.1 mg/mg 10- [facility] Basophil percentageOrdered B y: Black Steele on 08-02-2024 Basophils/100 WBC (Bld) 0.6 % 0-1 [facility] Bilirubin, totalOrdered By: Black Steele on 08-02-2024 Bilirubin [Mass/Vol] 0.32 mg/dL 0.00-1.30 [facility] CBC W/Diff, Automatedon 07-10 Absolute Lymph 2.82 X10 3/uL Normal 0.83-4.51 [facility] Comment on above: Performed By: #### L 509.3000, L801.2600, L100.0100, L500.4050, L501.21070, L501.9520, L506.0400, L3300.1750, L3300.6900 #### [facility] [address] [place], [address] Absolute Neut 4.1 X10 3/uL Normal 2.0-7.7 [facility] Comment on above: Performed By: #### L 509.3000, L801.2600, L100.0100, L500.4050, L501.76446, L501.9520, L506.0400, L3300.1750, L3300.6900 #### [facility] [address] [place], [address] Basophils/100 WBC (Bld) 0.6 % Normal 0-1 [facility] Comment on above: Performed By: #### L 509.3000, L801.2600, L100.0100, L500.4050, L501.48489, L501.9520, L506.0400, L3300.1750, L3300.6900 #### [facility] [address] [place], [address] Eosinophils/100 WBC (Bld) 5.0 % Normal 0-5 [facility] Comment on above: Performed By: #### L 509.3000, L801.2600, L100.0100, L500.4050, L501.04203, L501.9520, L506.0400, L3300.1750, L3300.6900 #### [facility] [address] [place], [place], [id number] ([phone]) Erythrocyte distribution width (RBC) [Ratio] 12.8 % Normal 11.6-14.6 [facility] Comment on above: Performed By: #### L 509.3000, L801.2600, L100.0100, L500.4050, L501.48532, L501.9520, L506.0400, L3300.1750, L3300.6900 #### [facility] [address] [place], [address] (134) Hematocrit (Bld) [Volume fraction] 45.3 % Normal 37-47 [facility] Comment on above: Performed By: #### L 509.3000, L801.2600, L100.0100, L500.4050, L501.40383, L501.9520, L506.0400, L3300.1750, L3300.6900 #### [facility] [address] [place], [address] (301) Hemoglobin (Bld) [Mass/Vol] 14.7 g/dL Normal 12.0-15.0 [facility] Comment on above: Performed By: #### L 509.3000, L801.2600, L100.0100, L500.4050, L501.38634, L501.9520, L506.0400, L3300.1750, L3300.6900 #### [facility] [address] [place], [address] (449 IG% 0.300 Normal 0.0-0.9 [facility] Comment on above: Result Comment: IG% - Immature Granulocytes (promyelocytes, myelocytes and metamyelocytes) > 1% indicates that a LEFT SHIFT is Present. Performed By: #### L 509.3000, L801.2600, L100.0100, L500.4050, L501.82262, L501.9520, L506.0400, L3300.1750, L3300.6900 #### [facility] [address] [place], [address] Lymphocytes/100 WBC (Bld) 35.5 % Normal 19-41 [facility] Comment on above: Performed By: #### L 509.3000, L801.2600, L100.0100, L500.4050, L501.11185, L501.9520, L506.0400, L3300.1750, L3300.6900 #### [facility] [address] [place], [address] MCH (RBC) [Entitic mass] 28.3 pg Normal 27.0-32.0 [facility] Comment on above: Performed By: #### L 509.3000, L801.2600, L100.0100, L500.4050, L501.86470, L501.9520, L506.0400, L3300.1750, L3300.6900 #### [facility] [address] [place], [address] MCHC (RBC) [Mass/Vol] 32.5 g/dL Normal 32-36 [facility] Comment on above: Performed By: #### L 509.3000, L801.2600, L100.0100, L500.4050, L501.07059, L501.9520, L506.0400, L3300.1750, L3300.6900 #### [facility] [address] [place], [address] MCV (RBC) [Entitic vol] 87.3 fL Normal 81-99 [facility] Comment on above: Performed By: #### L 509.3000, L801.2600, L100.0100, L500.4050, L501.43631, L501.9520, L506.0400, L3300.1750, L3300.6900 #### [facility] [address] [place], [place], [id number] (551 Monocytes/100 WBC (Bld) 7.7 % Normal 0-10 [facility] Comment on above: Performed By: #### L 509.3000, L801.2600, L100.0100, L500.4050, L501.70671, L501.9520, L506.0400, L3300.1750, L3300.6900 #### [facility] [address] [place], [address] (640 Neutrophils/100 WBC (Bld) 50.9 % Normal 47-70 [facility] Comment on above: Performed By: #### L 509.3000, L801.2600, L100.0100, L500.4050, L501.54712, L501.9520, L506.0400, L3300.1750, L3300.6900 #### [facility] [address] [place], [place], [phone] ([address] Nucleated RBC (Bld) [#/Vol] 0 10*3/uL Normal 0-5 [facility] Comment on above: Performed By: #### L 509.3000, L801.2600, L100.0100, L500.4050, L501.62280, L501.9520, L506.0400, L3300.1750, L3300.6900 #### [facility] [address] [place], [address] Platelet mean volume (Bld) [Entitic vol] 9.3 fL Normal 6.2-12.0 [facility] Comment on above: Performed By: #### L 509.3000, L801.2600, L100.0100, L500.4050, L501.75228, L501.9520, L506.0400, L3300.1750, L3300.6900 #### [facility] [address] [place], [address] Platelets (Bld) [#/Vol] 354 10*3/uL Normal 150-450 [facility] Comment on above: Performed By: #### L 509.3000, L801.2600, L100.0100, L500.4050, L501.50735, L501.9520, L506.0400, L3300.1750, L3300.6900 #### [facility] [address] [facility] [place], [address] RBC (Bld) [#/Vol] 5.19 10*6/uL Normal 4.2-5.4 [facility] Comment on above: Performed By: #### L 509.3000, L801.2600, L100.0100, L500.4050, L501.90621, L501.9520, L506.0400, L3300.1750, L3300.6900 #### [facility] [address] [facility] [place], [address] RDW SD 40.6 fl Normal 35.1-43.9 [facility] Comment on above: Performed By: #### L 509.3000, L801.2600, L100.0100, L500.4050, L501.55020, L501.9520, L506.0400, L3300.1750, L3300.6900 #### [facility] [address] [place], [address] WBC (Bld) [#/Vol] 8.0 10*3/uL Normal 4.4-11.0 [facility] Comment on above: Performed By: #### L 509.3000, L801.2600, L100.0100, L500.4050, L501.30212, L501.9520, L506.0400, L3300.1750, L3300.6900 #### [facility] [address] [place], [address] Carbon dioxide, total [Moles /volume] in Central venous bloodOrdered By: Black Steele on 08-02-2024 CO2 [Moles/Vol] 24.5 mmol/L 21.0-32.0 [facility] Chloride assayOrdered By: Ramon Steele on 08-02-2024 Chloride [Moles/Vol] 106 mmol/L 98-108 [facility] Comprehensive Metabolic Prof ilon 08-02-2024 Albumin [Mass/Vol] 4.0 g/dL Normal 3.4-4.8 [facility] Comment on above: Performed By: #### L 509.3000, L801.2600, L100.0100, L500.4050, L501.57143, L501.9520, L506.0400, L3300.1750, L3300.6900 #### [facility] [address] [place], [address] Albumin/Globulin [Mass ratio] 1.3 {ratio} Normal 0.9-2.4 [facility] Comment on above: Performed By: #### L 509.3000, L801.2600, L100.0100, L500.4050, L501.72196, L501.9520, L506.0400, L3300.1750, L3300.6900 #### [facility] [address] [place], [address] ALK PHOS 63 U/L Normal 35-104 [facility] Comment on above: Performed By: #### L 509.3000, L801.2600, L100.0100, L500.4050, L501.08669, L501.9520, L506.0400, L3300.1750, L3300.6900 #### [facility] [address] [place], [address] ALT [Catalytic activity/Vol] 34 U/L Normal <=34 [facility] Comment on above: Performed By: #### L 509.3000, L801.2600, L100.0100, L500.4050, L501.93505, L501.9520, L506.0400, L3300.1750, L3300.6900 #### [facility] [address] [place], [address] (267) AST [Catalytic activity/Vol] 28 U/L Normal <=31 [facility] Comment on above: Performed By: #### L 509.3000, L801.2600, L100.0100, L500.4050, L501.30408, L501.9520, L506.0400, L3300.1750, L3300.6900 #### [facility] [address] [place], [address] Bilirubin [Mass/Vol] 0.32 mg/dL Normal 0.00-1.30 [facility] Comment on above: Performed By: #### L 509.3000, L801.2600, L100.0100, L500.4050, L501.32886, L501.9520, L506.0400, L3300.1750, L3300.6900 #### [facility] [address] [place], [address] BUN/CRE 17.1 RATIO Normal 10-20 [facility] Comment on above: Performed By: #### L 509.3000, L801.2600, L100.0100, L500.4050, L501.66524, L501.9520, L506.0400, L3300.1750, L3300.6900 #### [facility] [address] [place], [address] Calcium [Mass/Vol] 9.0 mg/dL Normal 7.6-11.0 [facility] Comment on above: Performed By: #### L 509.3000, L801.2600, L100.0100, L500.4050, L501.91506, L501.9520, L506.0400, L3300.1750, L3300.6900 #### [facility] [address] [place], [address] Chloride [Moles/Vol] 106 mmol/L Normal 98-108 [facility] Comment on above: Performed By: #### L 509.3000, L801.2600, L100.0100, L500.4050, L501.49664, L501.9520, L506.0400, L3300.1750, L3300.6900 #### [facility] [address] [place], [place], [id number] (225) CO2 [Moles/Vol] 24.5 mmol/L Normal 21.0-32.0 [facility] Comment on above: Performed By: #### L 509.3000, L801.2600, L100.0100, L500.4050, L501.71140, L501.9520, L506.0400, L3300.1750, L3300.6900 #### [facility] [address] [place], [address] Creatinine [Mass/Vol] 0.71 mg/dL Normal 0.70-1.20 [facility] Comment on above: Performed By: #### L 509.3000, L801.2600, L100.0100, L500.4050, L501.22731, L501.9520, L506.0400, L3300.1750, L3300.6900 #### [facility] [address] [place], [address] GAP 11 Normal 5-15 [facility] Comment on above: Performed By: #### L 509.3000, L801.2600, L100.0100, L500.4050, L501.34978, L501.9520, L506.0400, L3300.1750, L3300.6900 #### [facility] [address] [place], [place], [id number] (918 GFR/1.73 sq M.predicted among non-blacks MDRD (S/P/Bld) [Vol rate/Area] 97 mL/min/{1.73_m2} Normal >60 [facility] Comment on above: Result Comment: mL/m in/1.73m2 CKD-EPI Creatinine Equation (2020) Performed By: #### L 509.3000, L801.2600, L100.0100, L500.4050, L501.25960, L501.9520, L506.0400, L3300.1750, L3300.6900 #### [facility] [address] [place], [address] (289) Globulin (S) [Mass/Vol] 3.1 g/dL Normal 2.2-4.2 [facility] Comment on above: Performed By: #### L 509.3000, L801.2600, L100.0100, L500.4050, L501.46093, L501.9520, L506.0400, L3300.1750, L3300.6900 #### [facility] [address] [place], [address] (881) Glucose [Mass/Vol] 102 mg/dL High 70-99 [facility] Comment on above: Performed By: #### L 509.3000, L801.2600, L100.0100, L500.4050, L501.84584, L501.9520, L506.0400, L3300.1750, L3300.6900 #### [facility] [address] [place], [address] (044 Potassium [Moles/Vol] 4.2 mmol/L Normal 3.3-5.1 [facility] Comment on above: Performed By: #### L 509.3000, L801.2600, L100.0100, L500.4050, L501.06722, L501.9520, L506.0400, L3300.1750, L3300.6900 #### [facility] [address] [place], [address] (399) Sodium [Moles/Vol] 141 mmol/L Normal 133-145 [facility] Comment on above: Performed By: #### L 509.3000, L801.2600, L100.0100, L500.4050, L501.15485, L501.9520, L506.0400, L3300.1750, L3300.6900 #### [facility] [address] [place], [address] (869) T PROT 7.0 g/dL Normal 5.9-8.4 [facility] Comment on above: Performed By: #### L 509.3000, L801.2600, L100.0100, L500.4050, L501.64528, L501.9520, L506.0400, L3300.1750, L3300.6900 #### [facility] [address] [place], [place], [id number] (641) Urea nitrogen [Mass/Vol] 12 mg/dL Normal 4-19 [facility] Comment on above: Performed By: #### L 509.3000, L801.2600, L100.0100, L500.4050, L501.17813, L501.9520, L506.0400, L3300.1750, L3300.6900 #### [facility] [address] [place], [place], [id number] (091) Eosinophil percentageOrdered By: Black Steele on 08-02-2024 Eosinophils/100 WBC (Bld) 5.0 % 0-5 [facility] Erythrocyte distribution wid th ratioOrdered By: Black Steele on 08-02-2024 Erythrocyte distribution width (RBC) [Ratio] 12.8 % 11.6-14.6 [facility] Erythrocyte distribution wid th standard deviationOrdered By: Black Steele on 08-02-2024 Erythrocyte distribution width (RBC) [Ratio] 40.6 fl 35.1-43.9 [facility] Glomerular filtration rate ( GFR) estimation/1.73 sq m using serum, plasma, or whole bOrdered By: Black Steele on 08-02-2024 GFR/1.73 sq M.predicted among non-blacks MDRD (S/P/Bld) [Vol rate/Area] 97 mL/min/{1.73_m2} >60 [facility] Comment on above: mL/min/1.73m2 CKD-EP I Creatinine Equation (2020) Hematocrit Auto (Bld) [Volum e fraction]Ordered By: Black Steele on 08-02-2024 Hematocrit (Bld) [Volume fraction] 45.3 % 37-47 [facility] Hemoglobin A1con 08-02-2024 HbA1c (Bld) [Mass fraction] 5.6 % Normal <=5.6 [facility] Comment on above: Result Comment: Norm al < 5.7 % Prediabetic 5.7 - 6.4 % Diabetic >or= 6.5 % Please note range changes. Performed By: #### L 509.3000, L801.2600, L100.0100, L500.4050, L501.07987, L501.9520, L506.0400, L3300.1750, L3300.6900 #### [facility] [address] [facility] [place], [place], [address] Hemoglobin A1c percentageOrd ered By: Black Steele on 08-02-2024 HbA1c (Bld) [Mass fraction] 5.6 % <5.7 [facility] Comment on above: Normal < 5.7 % Predi abetic 5.7 - 6.4 % Diabetic >or= 6.5 % Please note range changes. Hemoglobin measurementOrdere d By: Black Steele on 08-02-2024 Hemoglobin (Bld) [Mass/Vol] 14.7 g/dL 12.0-15.0 [facility] Immature granulocytes/100 WB C Auto (Bld)Ordered By: Black Steele on 08-02-2024 Immature granulocytes/100 WBC (Bld) 0.300 % 0.0-0.9 [facility] Comment on above: IG% - Immature Granu locytes (promyelocytes, myelocytes and metamyelocytes) > 1% indicates that a LEFT SHIFT is Present. Laboratory - Chemistry and C hemistry - challengeOrdered By: Black Steele on 08-02-2024 AST [Catalytic activity/Vol] 28 U/L <32 [facility] MCV (mean corpuscular volume ) determinationOrdered By: Black Steele on 08-02-2024 MCV (RBC) [Entitic vol] 87.3 fL 81-99 [facility] Mean corpuscular hemoglobin (MCH) determinationOrdered By: Black Steele on 08-02-2024 MCH (RBC) [Entitic mass] 28.3 pg 27.0-32.0 [facility] Mean corpuscular hemoglobin concentration (MCHC) determinationOrdered By: Black Steele on 08-02-2024 MCHC (RBC) [Mass/Vol] 32.5 g/dL 32-36 [facility] Mean platelet volume determi nationOrdered By: Black Steele on 08-02-2024 Platelet mean volume (Bld) [Entitic vol] 9.3 fL 6.2-12.0 [facility] Monocyte percentageOrdered B y: Black Steele on 08-02-2024 Monocytes/100 WBC (Bld) 7.7 % 0-10 [facility] Neutrophil percentageOrdered By: Black Steele on 08-02-2024 Neutrophils/100 WBC (Bld) 50.9 % 47-70 [facility] Nucleated red blood cell per centageOrdered By: Black Steele on 08-02-2024 Nucleated RBC/100 WBC (Bld) [Ratio] 0 % 0-5 [facility] Platelet countOrdered By: Ramon Steele on 08-02-2024 Platelets (Bld) [#/Vol] 354 10*3/uL 150-450 [facility] Potassium measurement (mass/ volume)Ordered By: Black Steele on 08-02-2024 Potassium (Unsp spec) [Mass/Vol] 4.2 mmol/L 3.3-5.1 [facility] RBC Auto (Bld) [#/Vol]Ordere d By: Black Steele on 08-02-2024 RBC (Bld) [#/Vol] 5.19 10*6/uL 4.2-5.4 [facility] Serum creatinine measurement (mass/volume)Ordered By: Black Steele on 08-02-2024 Creatinine [Mass/Vol] 0.71 mg/dL 0.70-1.20 [facility] Serum globulin measurementOr dered By: Black Steele on 08-02-2024 Globulin (S) [Mass/Vol] 3.1 g/dL 2.2-4.2 [facility] Serum glucose measurement (m ass/volume)Ordered By: Black Steele on 08-02-2024 Glucose [Mass/Vol] 102 mg/dL High 70-99 [facility] Serum or plasma alanine celaya otransferase (ALT) measurementOrdered By: Black Steele on 08-02-2024 ALT [Catalytic activity/Vol] 34 U/L <35 [facility] Serum or plasma albumin david urement (mass/volume)Ordered By: Black Steele on 08-02-2024 Albumin [Mass/Vol] 4.0 g/dL 3.4-4.8 [facility] Serum or plasma albumin/glob ulin mass ratioOrdered By: Black Steele on 08-02-2024 Albumin/Globulin [Mass ratio] 1.3 {ratio} 0.9-2.4 [facility] Serum or plasma alkaline martha sphatase measurementOrdered By: Black Steele on 08-02-2024 ALP [Catalytic activity/Vol] 63 U/L 35-104 [facility] Serum or plasma calcium david urement (mass/volume)Ordered By: Black Steele on 08-02-2024 Calcium [Mass/Vol] 9.0 mg/dL 7.6-11.0 [facility] Serum or plasma urea nitroge n measurement (mass/volume)Ordered By: Black Steele on 08-02-2024 Urea nitrogen [Mass/Vol] 12 mg/dL 4-19 [facility] Sodium levelOrdered By: Misael Steele on 08-02-2024 Sodium [Moles/Vol] 141 mmol/L 133-145 [facility] Total proteinOrdered By: Daljit Steele on 08-02-2024 Protein [Mass/Vol] 7.0 g/dL 5.9-8.4 [facility] White blood cell (WBC) count Ordered By: Black Steele on 08-02-2024 WBC (Bld) [#/Vol] 8.0 10*3/uL 4.4-11.0 [facility] Insulin Levelon 05-07-2024 INSULIN,FASTING 48.6 uIU/mL High 2.6-24.9 [facility] Comment on above: Result Comment: Perf ormed at: [employer] [id number] Fitness Technician: Magdaleno Mcnamara PhD, Phone: [phone] Performed By: #### L 509.3000, L801.2600, L100.0100, L500.4050, L501.64706, L501.9520, L506.0400, L3300.1750, L3300.6900 #### [facility] [address] [place] [address], [id number] INSULIN,FASTING 46.6 uIU/mL High 2.6-24.9 [facility] Comment on above: Result Comment: Perf ormed at: [facility] [id number] [place], [place] [id number] Fitness Technician: Magdaleno Mcnamara PhD, Phone: [phone] Performed By: #### L 509.3000, L801.2600, L100.0100, L500.4050, L501.57492, L501.9520, L506.0400, L3300.1750, L3300.6900 #### [facility] [address] [place], [place], [id number] INSULIN,FASTING 60.1 uIU/mL High 2.6-24.9 [facility] Comment on above: Result Comment: Perf ormed at: [address] [id number] Fitness Technician: Magdaleno Mcnamara PhD, Phone: [phone] Performed By: #### L 509.3000, L801.2600, L100.0100, L500.4050, L501.72889, L501.9520, L506.0400, L3300.1750, L3300.6900 #### [facility] [address] [place], [address] INSULIN,FASTING 14.6 uIU/mL Normal 2.6-24.9 [facility] Comment on above: Result Comment: Perf ormed at: [address] [id number] Fitness Technician: Magdaleno Mcnamara PhD, Phone: [phone] Performed By: #### L 509.3000, L801.2600, L100.0100, L500.4050, L501.05354, L501.9520, L506.0400, L3300.1750, L3300.6900 #### [facility] [place], [address] INSULIN,FASTING 103.0 uIU/mL High 2.6-24.9 [facility] Comment on above: Result Comment: Perf ormed at: [address] [id number] Fitness Technician: Magdaleno Mcnamara PhD, Phone: [phone] Performed By: #### L 509.3000, L801.2600, L100.0100, L500.4050, L501.30334, L501.9520, L506.0400, L3300.1750, L3300.6900 #### [facility] [address] [place], [place], [address] 3 HR Glucose Tolerance Testo n 05-06-2024 3HR GTT High 70-120 [facility] Comment on above: Order Comment: Y [...] Col: 05/06/24 1002 Performed By: #### L 500.4700, L3300.3500 #### [facility] [address] [place], [address] Bedside Glucoseon 05-06-2024 FINGERSTICK GLU 108 mg/dL High 74-106 [facility] Comment on above: Result Comment: RUBY HAINES OF PATIENT CARE PER NURSING PROTOCOL Performed By: #### L 509.3000, L801.2600, L100.0100, L500.4050, L501.72841, L501.9520, L506.0400, L3300.1750, L3300.6900 #### [facility] [address] [place], [address] PROGESTERONE 4317on 03-06-20 24 PROGESTERONE 0.3 ng/mL Normal . [facility] Comment on above: Order Comment: N Result Comment: Foll icular phase 0.1 - 0.9 Luteal phase 1.8 - 23.9 Ovulation phase 0.1 - 12.0 First trimester 11.0 - 44.3 Second trimester 25.4 - 83.3 Third trimester 58.7 - 214.0 Postmenopausal 0.0 - 0.1 Performed By: #### L 509.3000, L801.2600, L100.0100, L500.4050, L501.58513, L501.9520, L506.0400, L3300.1750, L3300.6900 #### [facility] [address] [place], [place], [id number] Testosterone, Serum Totalon 03-04-2024 Testosterone [Mass/Vol] 40.98 ng/dL Normal [facility] Comment on above: Result Comment: CENT RAL 90% REFERENCE RANGES MALE AGE <50 197.44 - 669.58 ng/dL MALE AGE > or = 50 187.72 - 684.19 ng/dL FEMALE AGE <50 8.38 - 35.01 ng/dL FEMALE AGE > or = 50 <7.00 - 35.92 ng/dL Effective as of 11/03/20 Performed By: #### L 509.3000, L801.2600, L100.0100, L500.4050, L501.56520, L501.9520, L506.0400, L3300.1750, L3300.6900 #### [facility] [address] [facility] [place], [address] Thyroid Peroxidase ABon 02-09 THYR PEROX AB 15 IU/mL Normal 0-34 [facility] Comment on above: Result Comment: Perf ormed at: - [facility] [id number] Fitness Technician: Magdaleno Mcnamara PhD, Phone: [phone] Performed By: #### L 509.3000, L801.2600, L100.0100, L500.4050, L501.70820, L501.9520, L506.0400, L3300.1750, L3300.6900 #### [facility] [address] [place], [address] CBC W/Diff, Automatedon 02-09 Absolute Lymph 2.92 X10 3/uL Normal 0.83-4.51 [facility] Comment on above: Performed By: #### L 509.3000, L801.2600, L100.0100, L500.4050, L501.60893, L501.9520, L506.0400, L3300.1750, L3300.6900 #### [facility] [address] [place], [address] Absolute Neut 4.7 X10 3/uL Normal 2.0-7.7 [facility] Comment on above: Performed By: #### L 509.3000, L801.2600, L100.0100, L500.4050, L501.56571, L501.9520, L506.0400, L3300.1750, L3300.6900 #### [facility] [address] [place], [address] Basophils/100 WBC (Bld) 0.7 % Normal 0-1 [facility] Comment on above: Performed By: #### L 509.3000, L801.2600, L100.0100, L500.4050, L501.51794, L501.9520, L506.0400, L3300.1750, L3300.6900 #### [facility] [address] [place], [address] Eosinophils/100 WBC (Bld) 2.7 % Normal 0-5 [facility] Comment on above: Performed By: #### L 509.3000, L801.2600, L100.0100, L500.4050, L501.91780, L501.9520, L506.0400, L3300.1750, L3300.6900 #### [facility] [address] [place], [address] Erythrocyte distribution width (RBC) [Ratio] 12.0 % Normal 11.6-14.6 [facility] Comment on above: Performed By: #### L 509.3000, L801.2600, L100.0100, L500.4050, L501.36877, L501.9520, L506.0400, L3300.1750, L3300.6900 #### [facility] [address] [facility] [place], [place], [id number] ([address] Hematocrit (Bld) [Volume fraction] 46.6 % Normal 37-47 [facility] Comment on above: Performed By: #### L 509.3000, L801.2600, L100.0100, L500.4050, L501.28596, L501.9520, L506.0400, L3300.1750, L3300.6900 #### [facility] [address] [place], [place], [phone] (371 Hemoglobin (Bld) [Mass/Vol] 14.7 g/dL Normal 12.0-15.0 [facility] Comment on above: Performed By: #### L 509.3000, L801.2600, L100.0100, L500.4050, L501.57045, L501.9520, L506.0400, L3300.1750, L3300.6900 #### [facility] [address] [place], [address] (671) IG% 0.400 Normal 0.0-0.9 [facility] Comment on above: Result Comment: IG% - Immature Granulocytes (promyelocytes, myelocytes and metamyelocytes) > 1% indicates that a LEFT SHIFT is Present. Performed By: #### L 509.3000, L801.2600, L100.0100, L500.4050, L501.18263, L501.9520, L506.0400, L3300.1750, L3300.6900 #### [facility] [address] [place], [address] Lymphocytes/100 WBC (Bld) 34.7 % Normal 19-41 [facility] Comment on above: Performed By: #### L 509.3000, L801.2600, L100.0100, L500.4050, L501.89614, L501.9520, L506.0400, L3300.1750, L3300.6900 #### [facility] [address] [place], [address] MCH (RBC) [Entitic mass] 28.1 pg Normal 27.0-32.0 [facility] Comment on above: Performed By: #### L 509.3000, L801.2600, L100.0100, L500.4050, L501.43301, L501.9520, L506.0400, L3300.1750, L3300.6900 #### [facility] [address] [place], [address] MCHC (RBC) [Mass/Vol] 31.5 g/dL Low 32-36 [facility] Comment on above: Performed By: #### L 509.3000, L801.2600, L100.0100, L500.4050, L501.89058, L501.9520, L506.0400, L3300.1750, L3300.6900 #### [facility] [address] [place], [address] MCV (RBC) [Entitic vol] 89.1 fL Normal 81-99 [facility] Comment on above: Performed By: #### L 509.3000, L801.2600, L100.0100, L500.4050, L501.55612, L501.9520, L506.0400, L3300.1750, L3300.6900 #### [facility] [address] [facility] [place], [address] Monocytes/100 WBC (Bld) 5.9 % Normal 0-10 [facility] Comment on above: Performed By: #### L 509.3000, L801.2600, L100.0100, L500.4050, L501.88566, L501.9520, L506.0400, L3300.1750, L3300.6900 #### [facility] [address] [place], [address] Neutrophils/100 WBC (Bld) 55.6 % Normal 47-70 [facility] Comment on above: Performed By: #### L 509.3000, L801.2600, L100.0100, L500.4050, L501.20685, L501.9520, L506.0400, L3300.1750, L3300.6900 #### [facility] [address] [place], [address] (661) Nucleated RBC (Bld) [#/Vol] 0 10*3/uL Normal 0-5 [facility] Comment on above: Performed By: #### L 509.3000, L801.2600, L100.0100, L500.4050, L501.37356, L501.9520, L506.0400, L3300.1750, L3300.6900 #### [facility] [address] [place], [address] (538) Platelet mean volume (Bld) [Entitic vol] 8.7 fL Normal 6.2-12.0 [facility] Comment on above: Performed By: #### L 509.3000, L801.2600, L100.0100, L500.4050, L501.01623, L501.9520, L506.0400, L3300.1750, L3300.6900 #### [facility] [address] [place], [place], [phone] (746 Platelets (Bld) [#/Vol] 404 10*3/uL Normal 150-450 [facility] Comment on above: Performed By: #### L 509.3000, L801.2600, L100.0100, L500.4050, L501.50169, L501.9520, L506.0400, L3300.1750, L3300.6900 #### [facility] [address] [place], [address] (443 RBC (Bld) [#/Vol] 5.23 10*6/uL Normal 4.2-5.4 [facility] Comment on above: Performed By: #### L 509.3000, L801.2600, L100.0100, L500.4050, L501.78780, L501.9520, L506.0400, L3300.1750, L3300.6900 #### [facility] [address] [place], [place], [id number] (231) RDW SD 39.5 fl Normal 35.1-43.9 [facility] Comment on above: Performed By: #### L 509.3000, L801.2600, L100.0100, L500.4050, L501.75994, L501.9520, L506.0400, L3300.1750, L3300.6900 #### [facility] [address] [place], [address] WBC (Bld) [#/Vol] 8.4 10*3/uL Normal 4.4-11.0 [facility] Comment on above: Performed By: #### L 509.3000, L801.2600, L100.0100, L500.4050, L501.52672, L501.9520, L506.0400, L3300.1750, L3300.6900 #### [facility] [address] [place], [place], [id number] Comprehensive Metabolic Prof gaon 03-02-2024 Albumin [Mass/Vol] 3.6 g/dL Normal 3.2-5.0 [facility] Comment on above: Order Comment: N Performed By: #### L 509.3000, L801.2600, L100.0100, L500.4050, L501.26767, L501.9520, L506.0400, L3300.1750, L3300.6900 #### [facility] [address] [place], [place], [id number] Albumin/Globulin [Mass ratio] 0.9 {ratio} Normal 0.9-2.4 [facility] Comment on above: Order Comment: N Performed By: #### L 509.3000, L801.2600, L100.0100, L500.4050, L501.95497, L501.9520, L506.0400, L3300.1750, L3300.6900 #### [facility] [address] [place], [address] ALK P 70 U/L Normal 45-117 [facility] Comment on above: Order Comment: N Performed By: #### L 509.3000, L801.2600, L100.0100, L500.4050, L501.33463, L501.9520, L506.0400, L3300.1750, L3300.6900 #### [facility] [address] [place], [place], [id number] ALT [Catalytic activity/Vol] 24 U/L Normal 13-56 [facility] Comment on above: Order Comment: N Performed By: #### L 509.3000, L801.2600, L100.0100, L500.4050, L501.89812, L501.9520, L506.0400, L3300.1750, L3300.6900 #### [facility] [address] [place], [address] AST [Catalytic activity/Vol] 19 U/L Normal 15-37 [facility] Comment on above: Order Comment: N Performed By: #### L 509.3000, L801.2600, L100.0100, L500.4050, L501.82239, L501.9520, L506.0400, L3300.1750, L3300.6900 #### [facility] [address] [place], [address] Bilirubin [Mass/Vol] 0.40 mg/dL Normal 0.20-1.00 [facility] Comment on above: Order Comment: N Result Comment: For patients on eltrombopag therapy, use of Dimension [place] TBIL is not recommended. Performed By: #### L 509.3000, L801.2600, L100.0100, L500.4050, L501.95850, L501.9520, L506.0400, L3300.1750, L3300.6900 #### [facility] [address] [place], [address] BUN/CRE 16.7 RATIO Normal 10-20 [facility] Comment on above: Order Comment: N Performed By: #### L 509.3000, L801.2600, L100.0100, L500.4050, L501.45145, L501.9520, L506.0400, L3300.1750, L3300.6900 #### [facility] [address] [place], [place], [phone] (913 CA,Total 8.9 mg/dL Normal 8.5-10.1 [facility] Comment on above: Order Comment: N Performed By: #### L 509.3000, L801.2600, L100.0100, L500.4050, L501.83621, L501.9520, L506.0400, L3300.1750, L3300.6900 #### [facility] [address] [place], [address] Chloride [Moles/Vol] 107 mmol/L Normal 98-107 [facility] Comment on above: Order Comment: N Performed By: #### L 509.3000, L801.2600, L100.0100, L500.4050, L501.72991, L501.9520, L506.0400, L3300.1750, L3300.6900 #### [facility] [address] [place], [address] CO2 [Moles/Vol] 25.0 mmol/L Normal 21.0-32.0 [facility] Comment on above: Order Comment: N Performed By: #### L 509.3000, L801.2600, L100.0100, L500.4050, L501.10211, L501.9520, L506.0400, L3300.1750, L3300.6900 #### [facility] [address] [place], [place], [id number] (185) Creatinine [Mass/Vol] 0.90 mg/dL Normal 0.55-1.02 [facility] Comment on above: Order Comment: N Result Comment: The validity of the calculated GFR GFRAA in patients over 70 years has not been determined. Clinical correlation is essential. Performed By: #### L 509.3000, L801.2600, L100.0100, L500.4050, L501.87047, L501.9520, L506.0400, L3300.1750, L3300.6900 #### [facility] [address] [place], [address] (955) EST GFR - AA 82 mL/min Normal >60 [facility] Comment on above: Order Comment: N Result Comment: Afri can Ghanaian GFR Calc Performed By: #### L 509.3000, L801.2600, L100.0100, L500.4050, L501.21432, L501.9520, L506.0400, L3300.1750, L3300.6900 #### [facility] [address] [place], [place], [phone] (645) GAP 8 Normal 5-15 [facility] Comment on above: Order Comment: N Performed By: #### L 509.3000, L801.2600, L100.0100, L500.4050, L501.02240, L501.9520, L506.0400, L3300.1750, L3300.6900 #### [facility] [address] [place], [address] (499) GFR/1.73 sq M.predicted among non-blacks MDRD (S/P/Bld) [Vol rate/Area] 67 mL/min/{1.73_m2} Normal >60 [facility] Comment on above: Order Comment: N Result Comment: Non- GFR Calc Performed By: #### L 509.3000, L801.2600, L100.0100, L500.4050, L501.33780, L501.9520, L506.0400, L3300.1750, L3300.6900 #### [facility] [address] [place], [address] Globulin (S) [Mass/Vol] 3.8 g/dL Normal 2.2-4.2 [facility] Comment on above: Order Comment: N Performed By: #### L 509.3000, L801.2600, L100.0100, L500.4050, L501.23032, L501.9520, L506.0400, L3300.1750, L3300.6900 #### [facility] [address] [place], [address] Glucose [Mass/Vol] 147 mg/dL High 74-106 [facility] Comment on above: Order Comment: N Result Comment: Fast ing Glucose result greater than or equal to 126 mg/dL suggests DIABETES MELLITUS per A.D.A. criteria. Performed By: #### L 509.3000, L801.2600, L100.0100, L500.4050, L501.76849, L501.9520, L506.0400, L3300.1750, L3300.6900 #### [facility] [address] [place], [address] Potassium [Moles/Vol] 3.6 mmol/L Normal 3.5-5.1 [facility] Comment on above: Order Comment: N Performed By: #### L 509.3000, L801.2600, L100.0100, L500.4050, L501.92162, L501.9520, L506.0400, L3300.1750, L3300.6900 #### [facility] [address] [place], [address] Sodium [Moles/Vol] 140 mmol/L Normal 136-145 [facility] Comment on above: Order Comment: N Performed By: #### L 509.3000, L801.2600, L100.0100, L500.4050, L501.93953, L501.9520, L506.0400, L3300.1750, L3300.6900 #### [facility] [address] [place], [address] T PROT 7.4 g/dL Normal 6.4-8.2 [facility] Comment on above: Order Comment: N Performed By: #### L 509.3000, L801.2600, L100.0100, L500.4050, L501.81060, L501.9520, L506.0400, L3300.1750, L3300.6900 #### [facility] [address] [place], [address] Urea nitrogen [Mass/Vol] 15 mg/dL Normal 7-18 [facility] Comment on above: Order Comment: N Performed By: #### L 509.3000, L801.2600, L100.0100, L500.4050, L501.44374, L501.9520, L506.0400, L3300.1750, L3300.6900 #### [facility] [address] [place], [address] Estradiolon 03-02-2024 ESTRADIOL 31.9 pg/mL Normal [facility] Comment on above: Order Comment: N [...] DETERMINE ESTRADIOL CONCENTRATION. Performed By: #### L 509.3000, L801.2600, L100.0100, L500.4050, L501.59929, L501.9520, L506.0400, L3300.1750, L3300.6900 #### [facility] [address] [place], [address] Free T3on 03-02-2024 Free T3 [Mass/Vol] 2.3 pg/mL Normal 2.18-3.98 [facility] Comment on above: Order Comment: N Performed By: #### L 509.3000, L801.2600, L100.0100, L500.4050, L501.61947, L501.9520, L506.0400, L3300.1750, L3300.6900 #### [facility] [address] [place], [place], [id number] T4 Free Directon 03-02-2024 T4 FREE DIRECT 0.91 ng/dL Normal 0.76-1.46 [facility] Comment on above: Order Comment: N Performed By: #### L 509.3000, L801.2600, L100.0100, L500.4050, L501.74525, L501.9520, L506.0400, L3300.1750, L3300.6900 #### [facility] [address] [place], [place], [id number] Thyroid Stim Hormone (TSH)on 03-02-2024 TSH 3.480 uIU/mL Normal 0.358-3.740 [facility] Comment on above: Order Comment: N Performed By: #### L 509.3000, L801.2600, L100.0100, L500.4050, L501.82560, L501.9520, L506.0400, L3300.1750, L3300.6900 #### [facility] [address] [place], [address] Absolute lymphocyte countOrd ered By: Black Steele on 05-26-2023 Lymphocytes Auto (Unsp spec) [#/Vol] 3.33 10*3/uL 0.83-4.51 [facility] Automated lymphocyte count a s percentage of total leukocytesOrdered By: Black Cedric on 05-26-2023 Lymphocytes/100 WBC Auto (Unsp spec) 39.7 % 19-41 [facility] Basophil percentageOrdered B y: Black Steele on 05-26-2023 Basophils/100 WBC (Bld) 0.6 % 0-1 [facility] Bilirubin [Mass/Vol] 0.40 mg/dL 0.20-1.00 [facility] Comment on above: For patients on eltr ombopag therapy, use of Dimension [place] TBIL is not recommended. Chloride [Moles/Vol] 107 mmol/L 98-107 [facility] Cholesterol [Mass/Vol] 186 mg/dL <200 [facility] Comment on above: <200 mg/dL Desirable 200-240 mg/dL Borderline >240 mg/dL High Risk Eosinophils/100 WBC (Bld) 2.9 % 0-5 [facility] Glucose [Mass/Vol] 132 mg/dL 74-106 [facility] Comment on above: Fasting Glucose resu lt greater than or equal to 126 mg/dL suggests DIABETES MELLITUS per A.D.A. criteria. Hemoglobin (Bld) [Mass/Vol] 15.3 g/dL 12.0-15.0 [facility] Monocytes/100 WBC (Bld) 7.2 % 0-10 [facility] Neutrophils (Bld) [#/Vol] 4.1 10*3/uL 2.0-7.7 [facility] Neutrophils/100 WBC (Bld) 49.1 % 47-70 [facility] Potassium [Moles/Vol] 4.0 mmol/L 3.5-5.1 [facility] Protein [Mass/Vol] 7.6 g/dL 6.4-8.2 [facility] Sodium [Moles/Vol] 140 mmol/L 136-145 [facility] Testosterone [Mass/Vol] 37.04 ng/dL [facility] Comment on above: CENTRAL 90% REFERENC E RANGES MALE AGE <50 197.44 - 669.58 ng/dL MALE AGE > or = 50 187.72 - 684.19 ng/dL FEMALE AGE <50 8.38 - 35.01 ng/dL FEMALE AGE > or = 50 <7.00 - 35.92 ng/dL Effective as of 11/03/20 Triglyceride [Mass/Vol] 204 mg/dL <199 [facility] Comment on above: The drugs N-Acetylcy steine and Metamizole may falsely depress this assay.Serum Triglycerides Reference Interval Normal <150 mg/dL Borderline high 150 - 199 mg/dL High 200 - 499 mg/dL Very High > or = 500 mg/dL WBC (Bld) [#/Vol] 8.4 10*3/uL 4.4-11.0 [facility] Determination of erythrocyte mean corpuscular volume (MCV)Ordered By: Black Steele on 05-26-2023 MCV (RBC) [Entitic vol] 89.0 fL 81-99 [facility] Erythrocyte distribution wid th ratioOrdered By: Black Steele on 05-26-2023 Erythrocyte distribution width (RBC) [Ratio] 12.3 % 11.6-14.6 [facility] Erythrocyte distribution wid th standard deviationOrdered By: Blacksocorro Steele on 05-26-2023 Erythrocyte distribution width (RBC) [Entitic vol] 40.0 fL 35.1-43.9 [facility] Hematocrit Auto (Bld) [Volum e fraction]Ordered By: Black Steele on 05-26-2023 Hematocrit (Bld) [Volume fraction] 47.9 % 37-47 [facility] Immature granulocytes/100 WB C Auto (Bld)Ordered By: Black Steele on 05-26-2023 Immature granulocytes/100 WBC (Bld) 0.500 % 0.0-0.9 [facility] Comment on above: IG% - Immature Granu locytes (promyelocytes, myelocytes and metamyelocytes) > 1% indicates that a LEFT SHIFT is Present. Laboratory - Chemistry and C hemistry - challengeOrdered By: Black Steele on 05-26-2023 Albumin/Globulin [Mass ratio] 0.9 {ratio} 0.9-2.4 [facility] ALP [Catalytic activity/Vol] 77 U/L 45-117 [facility] ALT [Catalytic activity/Vol] 29 U/L 13-56 [facility] Cholesterol in HDL [Mass/Vol] 48 mg/dL >40 [facility] Comment on above: The drugs N-Acetylcy steine and Metamizole may falsely depress this assay. Reference Range HDL <40 mg/dL Low HDL Cholesterol HDL >or= 60 mg/dL High HDL Cholesterol Cholesterol in LDL [Mass/Vol] 97 mg/dL 0-130 [facility] CO2 [Moles/Vol] 28.0 mmol/L 21.0-32.0 [facility] Globulin (S) [Mass/Vol] 4.0 g/dL 2.2-4.2 [facility] Urea nitrogen/Creatinine [Mass ratio] 16.7 mg/mg 10-20 [facility] - Hematology and Cell countsOrdered By: Black tSeele on 05-26-2023 MCH (RBC) [Entitic mass] 28.4 pg 27.0-32.0 [facility] MCHC (RBC) [Mass/Vol] 31.9 g/dL 32-36 [facility] Nucleated RBC/100 WBC (Bld) [Ratio] 0 % 0-5 [facility] Platelet mean volume (Bld) [Entitic vol] 8.9 fL 6.2-12.0 [facility] Platelets (Bld) [#/Vol] 403 10*3/uL 150-450 [facility] No Panel InformationOrdered By: Black Steele on 05-26-2023 Estimated GFR (MDRD) Amer 76 mL/min >60 [facility] Comment on above: GFR Calc Estimated GFR (MDRD) Non-Af Amer 63 mL/min >60 [facility] Comment on above: Non- GFR Calc Free Triiodothyronine (T3) pg/dL 2.3 pg/mL 2.18-3.98 [facility] VLDL Cholesterol 41 mg/dL 5-40 [facility] RBC Auto (Bld) [#/Vol]Ordere d By: Black Steele on 05-26-2023 RBC (Bld) [#/Vol] 5.38 10*6/uL 4.2-5.4 [facility] Serum or plasma calcium david urement (mass/volume)Ordered By: Black Steele on 05-26-2023 Calcium [Mass/Vol] 9.2 mg/dL 8.5-10.1 [facility] Serum or plasma creatinine m easurement (mass/volume)Ordered By: Black Steele on 05-26-2023 Creatinine [Mass/Vol] 0.96 mg/dL 0.55-1.02 [facility] Comment on above: The validity of the calculated GFR & GFRAA in patients over 70 years has not been determined. Clinical correlation is essential. Serum or plasma homocysteine measurement (mass/volume)Ordered By: Black Steele on 05-26-2023 Homocysteine [Mass/Vol] 11.2 umol/L 3.2-10.7 [facility] Serum or plasma progesterone measurement (mass/volume)Ordered By: Black Steele on 05-26-2023 Progesterone [Mass/Vol] 0.71 ng/mL See Comment [facility] Comment on above: Progesterone Referen ce [...] on 05-26-2023 TSH Qn 5.39 uIU/mL 0.358-3.74 [facility] Serum or plasma thyroperoxid ase antibody assay (units/volume)Ordered By: Black Steele on 05-26-2023 TPO Ab Qn 9 [IU]/mL 0-34 [facility] Comment on above: Performed at: - [facility] [id number] [place], [place] [id number] Director: Magdaleno Mcnamara PhD, Phone: [phone] Serum or plasma urea nitroge n measurement (mass/volume)Ordered By: Black Steele on 05-26-2023 Urea nitrogen [Mass/Vol] 16 mg/dL 7-18 [facility] Thin prep Papanicolaou smear with manual screeningOrdered By: Black Steele on 05-26-2023 Thin prep Papanicolaou smear with manual screening 3.6 g/dL 3.2-5.0 [facility] Thin prep Papanicolaou smear with manual screening 24 U/L 15-37 [facility] Thin prep Papanicolaou smear with manual screening 5 5-15 [facility] Thin prep Papanicolaou smear with manual screening 0.87 ng/dL 0.76-1.46 [facility] Whole blood hemoglobin A1c/t otal hemoglobin ratio (mass fraction)Ordered By: Black Steele on 05-26-2023 HbA1c (Bld) [Mass fraction] 6.1 % 3.8-5.6 [facility] Comment on above: Normal < 5.7 % Predi abetic 5.7 - 6.4 % Diabetic >or= 6.5 % Please note range changes. Basophil percentageOrdered B y: Black Steele on 11-21-2022 Bilirubin [Mass/Vol] 0.40 mg/dL 0.20-1.00 [facility] Comment on above: For patients on eltr ombopag therapy, use of Dimension [place] TBIL is not recommended. Chloride [Moles/Vol] 109 mmol/L 98-107 [facility] Cholesterol [Mass/Vol] 192 mg/dL <200 [facility] Comment on above: <200 mg/dL Desirable 200-240 mg/dL Borderline >240 mg/dL High Risk Glucose [Mass/Vol] 119 mg/dL 74-106 [facility] Comment on above: Fasting Glucose resu lt from 100 to 125 mg/dL suggests IMPAIRED HOMEOSTASIS per A.D.A. criteria. Potassium [Moles/Vol] 3.6 mmol/L 3.5-5.1 [facility] Protein [Mass/Vol] 7.2 g/dL 6.4-8.2 [facility] Sodium [Moles/Vol] 142 mmol/L 136-145 [facility] Triglyceride [Mass/Vol] 195 mg/dL <199 [facility] Comment on above: The drugs N-Acetylcy steine and Metamizole may falsely depress this assay.Serum Triglycerides Reference Interval Normal <150 mg/dL Borderline high 150 - 199 mg/dL High 200 - 499 mg/dL Very High > or = 500 mg/dL Laboratory - Chemistry and C hemistry - challengeOrdered By: Black Steele on 11-21-2022 ALP [Catalytic activity/Vol] 71 U/L 45-117 [facility] ALT [Catalytic activity/Vol] 26 U/L 13-56 [facility] CO2 [Moles/Vol] 26.0 mmol/L 21.0-32.0 [facility] Globulin (S) [Mass/Vol] 3.9 g/dL 2.2-4.2 [facility] Urea nitrogen/Creatinine [Mass ratio] 13.6 mg/mg 10-20 [facility] No Panel InformationOrdered By: Black Steele on 11-21-2022 C-Peptide 3.5 ng/mL 1.1-4.4 [facility] Comment on above: C-Peptide reference interval is for fasting patients.Performed at: [facility] [id number] Director: Magdaleno Mcnamara PhD, Phone: [phone] Estimated GFR (MDRD) Amer 93 mL/min >60 [facility] Comment on above: GFR Calc Estimated GFR (MDRD) Non-Af Amer 76 mL/min >60 [facility] Comment on above: Non- GFR Calc Serum or plasma albumin david urement (mass/volume)Ordered By: Black Steele on 11-21-2022 Albumin [Mass/Vol] 3.3 g/dL 3.2-5.0 [facility] Serum or plasma albumin/glob ulin mass ratioOrdered By: Black Steele on 11-21-2022 Albumin/Globulin [Mass ratio] 0.8 {ratio} 0.9-2.4 [facility] Serum or plasma calcium david urement (mass/volume)Ordered By: Black Steele on 11-21-2022 Calcium [Mass/Vol] 8.6 mg/dL 8.5-10.1 [facility] Serum or plasma cholesterol in HDL measurement (mass/volume)Ordered By: Black Steele on 11-21-2022 Cholesterol in HDL [Mass/Vol] 48 mg/dL >40 [facility] Comment on above: The drugs N-Acetylcy steine and Metamizole may falsely depress this assay. Reference Range HDL <40 mg/dL Low HDL Cholesterol HDL >or= 60 mg/dL High HDL Cholesterol Serum or plasma cholesterol in VLDL measurement (mass/volume)Ordered By: Black Steele on 11-21-2022 Cholesterol in VLDL [Mass/Vol] 39 mg/dL 5-40 [facility] Serum or plasma creatinine m easurement (mass/volume)Ordered By: Black Steele on 11-21-2022 Creatinine [Mass/Vol] 0.81 mg/dL 0.55-1.02 [facility] Comment on above: The validity of the calculated GFR & GFRAA in patients over 70 years has not been determined. Clinical correlation is essential. Serum or plasma low density lipoprotein (LDL) cholesterol measurement (mass/volume)Ordered By: Black Steele on 11-21-2022 Cholesterol in LDL [Mass/Vol] 105 mg/dL 0-130 [facility] Serum or plasma urea nitroge n measurement (mass/volume)Ordered By: Black Steele on 11-21-2022 Urea nitrogen [Mass/Vol] 11 mg/dL 7-18 [facility] Thin prep Papanicolaou smear with manual screeningOrdered By: Black Steele on 11-21-2022 Thin prep Papanicolaou smear with manual screening 21 U/L 15-37 [facility] Thin prep Papanicolaou smear with manual screening 7 5-15 [facility] Absolute lymphocyte countOrd ered By: Black Steele on 10-28-2022 Lymphocytes Auto (Unsp spec) [#/Vol] 2.55 10*3/uL 0.83-4.51 [facility] Basophil percentageOrdered B y: Black Steele on 10-28-2022 Basophils/100 WBC (Bld) 0.8 % 0-1 [facility] Bilirubin [Mass/Vol] 0.30 mg/dL 0.20-1.00 [facility] Comment on above: For patients on eltr ombopag therapy, use of Dimension [place] TBIL is not recommended. Chloride [Moles/Vol] 105 mmol/L 98-107 [facility] Eosinophils/100 WBC (Bld) 2.9 % 0-5 [facility] Glucose [Mass/Vol] 115 mg/dL 74-106 [facility] Comment on above: Fasting Glucose resu lt from 100 to 125 mg/dL suggests IMPAIRED HOMEOSTASIS per A.D.A. criteria. Neutrophils (Bld) [#/Vol] 4.6 10*3/uL 2.0-7.7 [facility] Neutrophils/100 WBC (Bld) 57.4 % 47-70 [facility] Potassium [Moles/Vol] 4.0 mmol/L 3.5-5.1 [facility] Protein [Mass/Vol] 7.5 g/dL 6.4-8.2 [facility] Sodium [Moles/Vol] 140 mmol/L 136-145 [facility] Testosterone [Mass/Vol] 41.30 ng/dL [facility] Comment on above: CENTRAL 90% REFERENC E RANGES MALE AGE <50 197.44 - 669.58 ng/dL MALE AGE > or = 50 187.72 - 684.19 ng/dL FEMALE AGE <50 8.38 - 35.01 ng/dL FEMALE AGE > or = 50 <7.00 - 35.92 ng/dL Effective as of 11/03/20 WBC (Bld) [#/Vol] 8.0 10*3/uL 4.4-11.0 [facility] Blood erythrocytes count (nu mber/volume)Ordered By: Black Steele on 10-28-2022 RBC (Bld) [#/Vol] 5.26 10*6/uL 4.2-5.4 [facility] Blood hemoglobin measurement (mass/volume)Ordered By: Black Steele on 10-28-2022 Hemoglobin (Bld) [Mass/Vol] 14.9 g/dL 12.0-15.0 [facility] Blood lymphocytes/100 leukoc ytesOrdered By: Black Steele on 10-28-2022 Lymphocytes/100 WBC (Bld) 32.0 % 19-41 [facility] Blood monocytes/100 leukocyt esOrdered By: Blacksocorro Steele on 10-28-2022 Monocytes/100 WBC (Bld) 6.4 % 0-10 [facility] Blood platelet mean volumeOr dered By: Black Steele on 10-28-2022 Platelet mean volume (Bld) [Entitic vol] 9.4 fL 6.2-12.0 [facility] Determination of erythrocyte mean corpuscular volume (MCV)Ordered By: Black Steele on 10-28-2022 MCV (RBC) [Entitic vol] 90.1 fL 81-99 [facility] Hematocrit Auto (Bld) [Volum e fraction]Ordered By: Black Steele on 10-28-2022 Hematocrit (Bld) [Volume fraction] 47.4 % 37-47 [facility] Laboratory - Chemistry and C hemistry - challengeOrdered By: Blacksocorro Steele on 10-28-2022 ALP [Catalytic activity/Vol] 71 U/L 45-117 [facility] ALT [Catalytic activity/Vol] 32 U/L 13-56 [facility] CO2 [Moles/Vol] 29.0 mmol/L 21.0-32.0 [facility] Free T4 [Mass/Vol] 0.93 ng/dL 0.76-1.46 [facility] Globulin (S) [Mass/Vol] 3.9 g/dL 2.2-4.2 [facility] Urea nitrogen/Creatinine [Mass ratio] 20.3 mg/mg 10-20 [facility] Laboratory - Hematology and Cell countsOrdered By: Black Steele on 10-28-2022 Erythrocyte distribution width (RBC) [Entitic vol] 41.1 fL 35.1-43.9 [facility] Erythrocyte distribution width (RBC) [Ratio] 12.5 % 11.6-14.6 [facility] Immature granulocytes/100 WBC (Bld) 0.500 % 0.0-0.9 [facility] Comment on above: IG% - Immature Granu locytes (promyelocytes, myelocytes and metamyelocytes) > 1% indicates that a LEFT SHIFT is Present. MCH (RBC) [Entitic mass] 28.3 pg 27.0-32.0 [facility] Nucleated RBC/100 WBC (Bld) [Ratio] 0 % 0-5 [facility] MCHC Auto (RBC) [Mass/Vol]Or dered By: Black Steele on 10-28-2022 MCHC (RBC) [Mass/Vol] 31.4 g/dL 32-36 [facility] No Panel InformationOrdered By: Black Steele on 10-28-2022 Estimated GFR (MDRD) Amer 95 mL/min >60 [facility] Comment on above: GFR Calc Estimated GFR (MDRD) Non-Af Amer 79 mL/min >60 [facility] Comment on above: Non- GFR Calc Free Triiodothyronine (T3) pg/dL 3.7 pg/mL 2.18-3.98 [facility] Thyroid Stimulating Hormone (TSH) 2.87 uIU/mL 0.358-3.74 [facility] Platelets bldOrdered By: Daljit Steele on 10-28-2022 Platelets (Bld) [#/Vol] 391 10*3/uL 150-450 [facility] Serum or plasma albumin david urement (mass/volume)Ordered By: Black Steele on 10-28-2022 Albumin [Mass/Vol] 3.6 g/dL 3.2-5.0 [facility] Serum or plasma albumin/glob ulin mass ratioOrdered By: Black Steele on 10-28-2022 Albumin/Globulin [Mass ratio] 0.9 {ratio} 0.9-2.4 [facility] Serum or plasma calcium david urement (mass/volume)Ordered By: Black Steele on 10-28-2022 Calcium [Mass/Vol] 9.0 mg/dL 8.5-10.1 [facility] Serum or plasma creatinine m easurement (mass/volume)Ordered By: Black Steele on 10-28-2022 Creatinine [Mass/Vol] 0.79 mg/dL 0.55-1.02 [facility] Comment on above: The validity of the calculated GFR & GFRAA in patients over 70 years has not been determined. Clinical correlation is essential. Serum or plasma estradiol (E 2) measurement (mass/volume)Ordered By: Black Stelee on 10-28-2022 E2 [Mass/Vol] 36.6 pg/mL [facility] Comment on above: NORMAL REFERENCE RAN [...] 10-28-2022 Progesterone [Mass/Vol] 0.68 ng/mL See Comment [facility] Comment on above: Progesterone Referen ce Table: UNITS Female: Follicular 0.15 - 1.40 ng/mL Luteal 3.34 - 25.56 ng/mL Mid-luteal 4.44 - 28.03 ng/mL Postmenopausal 0.0 - 0.73 ng/mL : 1st Trimester 11.22 - 90.00 ng/mL 2nd Trimester 25.55 - 89.40 ng/mL 3rd Trimester 48.40 -422.50 ng/mL Serum or plasma thyroperoxid ase antibody assay (units/volume)Ordered By: Black Steele on 10-28-2022 TPO Ab Qn [IU]/mL 0-34 [facility] Comment on above: Performed at: [address] [id number] Director: Magdaleno Mcnamara PhD, Phone: [phone] Serum or plasma urea nitroge n measurement (mass/volume)Ordered By: Black Steele on 10-28-2022 Urea nitrogen [Mass/Vol] 16 mg/dL 7-18 [facility] Thin prep Papanicolaou smear with manual screeningOrdered By: Black Steele on 10-28-2022 Thin prep Papanicolaou smear with manual screening 23 U/L 15-37 [facility] Thin prep Papanicolaou smear with manual screening 6 5-15 [facility] Absolute lymphocyte counton 10-13-2021 Lymphocytes Auto (Unsp spec) [#/Vol] 2.50 10*3/uL 0.83-4.51 [facility] Work Phone: Basophil percentageon 2021 Basophils/100 WBC (Bld) 0.6 % 0-1 [facility] Work Phone: Bilirubin [Mass/Vol] 0.30 mg/dL 0.20-1.00 [facility] Work Phone: Comment on above: For patients on eltr ombopag therapy, use of Dimension [place] TBIL is not recommended. Chloride [Moles/Vol] 106 mmol/L 98-107 [facility] Work Phone: Eosinophils/100 WBC (Bld) 3.6 % 0-5 [facility] Work Phone: Glucose [Mass/Vol] 126 mg/dL 74-106 [facility] Work Phone: Comment on above: Fasting Glucose resu lt greater than or equal to 126 mg/dL suggests DIABETES MELLITUS per A.D.A. criteria. Neutrophils (Bld) [#/Vol] 4.8 10*3/uL 2.0-7.7 [facility] Work Phone: Neutrophils/100 WBC (Bld) 58.0 % 47-70 [facility] Work Phone: Potassium [Moles/Vol] 4.0 mmol/L 3.5-5.1 [facility] Work Phone: Protein [Mass/Vol] 7.5 g/dL 6.4-8.2 [facility] Work Phone: Sodium [Moles/Vol] 139 mmol/L 136-145 [facility] Work Phone: Testosterone [Mass/Vol] 39.73 ng/dL [facility] Work Phone: Comment on above: CENTRAL 90% REFERENC E RANGES MALE AGE <50 197.44 - 669.58 ng/dL MALE AGE > or = 50 187.72 - 684.19 ng/dL FEMALE AGE <50 8.38 - 35.01 ng/dL FEMALE AGE > or = 50 <7.00 - 35.92 ng/dL Effective as of 11/03/20 WBC (Bld) [#/Vol] 8.2 10*3/uL 4.4-11.0 [facility] Work Phone: Blood erythrocytes count (nu mber/volume)on 10-13-2021 RBC (Bld) [#/Vol] 5.30 10*6/uL 4.2-5.4 [facility] Work Phone: Blood hemoglobin measurement (mass/volume)on 10-13-2021 Hemoglobin (Bld) [Mass/Vol] 15.1 g/dL 12.0-15.0 [facility] Work Phone: Blood lymphocytes/100 leukoc yteson 10-13-2021 Lymphocytes/100 WBC (Bld) 30.3 % 19-41 [facility] Work Phone: Blood monocytes/100 leukocyt eson 10-13-2021 Monocytes/100 WBC (Bld) 6.8 % 0-10 [facility] Work Phone: Blood platelet mean volumeon 10-13-2021 Platelet mean volume (Bld) [Entitic vol] 8.7 fL 6.2-12.0 [facility] Work Phone: Determination of erythrocyte mean corpuscular volume (MCV)on 10-13-2021 MCV (RBC) [Entitic vol] 88.1 fL 81-99 [facility] Work Phone: Hematocrit Auto (Bld) [Volum e fraction]on 10-13-2021 Hematocrit (Bld) [Volume fraction] 46.7 % 37-47 [facility] Work Phone: Laboratory - Chemistry and C hemistry - challengeon 10-13-2021 ALP [Catalytic activity/Vol] 78 U/L 45-117 [facility] Work Phone: [phone] ALT [Catalytic activity/Vol] 33 U/L 13-56 [facility] Work Phone: [phone] CO2 [Moles/Vol] 27.0 mmol/L 21.0-32.0 [facility] Work Phone: [phone] Free T4 [Mass/Vol] 1.06 ng/dL 0.76-1.46 [facility] Work Phone: [phone] Globulin (S) [Mass/Vol] 4.0 g/dL 2.2-4.2 [facility] Work Phone: Urea nitrogen/Creatinine [Mass ratio] 12.0 mg/mg 10-20 [facility] Work Phone: [phone] Laboratory - Hematology and Cell countson 10-13-2021 Erythrocyte distribution width (RBC) [Entitic vol] 39.4 fL 35.1-43.9 [facility] Work Phone: [phone] Erythrocyte distribution width (RBC) [Ratio] 12.2 % 11.6-14.6 [facility] Work Phone: Immature granulocytes/100 WBC (Bld) 0.700 % 0.0-0.9 [facility] Work Phone: [phone] Comment on above: IG% - Immature Granu locytes (promyelocytes, myelocytes and metamyelocytes) > 1% indicates that a LEFT SHIFT is Present. MCH (RBC) [Entitic mass] 28.5 pg 27.0-32.0 [facility] Work Phone: [phone] Nucleated RBC/100 WBC (Bld) [Ratio] 0 % 0-5 [facility] Work Phone: MCHC Auto (RBC) [Mass/Vol]on 10-13-2021 MCHC (RBC) [Mass/Vol] 32.3 g/dL 32-36 [facility] Work Phone: No Panel Informationon 10-13 Dehydroepiandrosterone Sulfate 114.0 ug/dL 29.4-220.5 [facility] Work Phone: Estimated GFR (MDRD) Amer 80 mL/min >60 [facility] Work Phone: Comment on above: GFR Calc Estimated GFR (MDRD) Non-Af Amer 66 mL/min >60 [facility] Work Phone: Comment on above: Non- GFR Calc Free Triiodothyronine (T3) pg/dL 3.8 pg/mL 2.18-3.98 [facility] Work Phone: Thyroid Stimulating Hormone (TSH) 2.97 uIU/mL 0.358-3.74 [facility] Work Phone: Platelets bldon 10-13-2021 Platelets (Bld) [#/Vol] 356 10*3/uL 150-450 [facility] Work Phone: Serum or plasma albumin david urement (mass/volume)on 10-13-2021 Albumin [Mass/Vol] 3.5 g/dL 3.2-5.0 [facility] Work Phone: Serum or plasma albumin/glob ulin mass ratioon 10-13-2021 Albumin/Globulin [Mass ratio] 0.9 {ratio} 0.9-2.4 [facility] Work Phone: Serum or plasma calcium david urement (mass/volume)on 10-13-2021 Calcium [Mass/Vol] 9.0 mg/dL 8.5-10.1 [facility] Work Phone: Serum or plasma creatinine m easurement (mass/volume)on 10-13-2021 Creatinine [Mass/Vol] 0.92 mg/dL 0.55-1.02 [facility] Work Phone: Comment on above: The validity of the calculated GFR & GFRAA in patients over 70 years has not been determined. Clinical correlation is essential. Serum or plasma estradiol (E 2) measurement (mass/volume)on 10-13-2021 E2 [Mass/Vol] 40.4 pg/mL [facility] Work Phone: Comment on above: NORMAL [...] 10-13-2021 Progesterone [Mass/Vol] 0.53 ng/mL See Comment [facility] Work Phone: Comment on above: Progesterone [...] (units/volume)on 10-13-2021 TPO Ab Qn [IU]/mL 0-34 [facility] Work Phone: Comment on above: Performed at: [address] [id number] Director: Magdaleno Mcnamara PhD, Phone: [phone] Serum or plasma urea nitroge n measurement (mass/volume)on 10-13-2021 Urea nitrogen [Mass/Vol] 11 mg/dL 7-18 [facility] Work Phone: Thin prep Papanicolaou smear with manual screeningon 10-13-2021 Thin prep Papanicolaou smear with manual screening 25 U/L 15-37 [facility] Work Phone: Thin prep Papanicolaou smear with manual screening 6 5-15 [facility] Work Phone: Encounters Encounter Date Encounter Type Care Provider Facility Start: 10-25-2024 End: 10-25-2024 ambulatory No Primary Care Physician -Laboratory Start: 10-25-2024 End: 10-25-[address] Black Steele MD -Laboratory Work Phone: Start: 10-25-2024 End: 10-25-2024 ambulatory [facility] Facility:[facility] Start: 08-02-2024 End: 08-02-[address] Black Steele MD -Laboratory Work Phone: Start: 08-02-2024 End: 08-02-[facility] Start: 05-06-2024 End: 05-06-2024 ambulatory [facility] Facility:[facility] Start: 03-02-2024 End: 03-02-2024 ambulatory No Primary Care Physician Facility:[facility] Start: 05-26-2023 End: 05-26-2023 ambulatory [facility] Work Phone: Start: 05-26-2023 End: 05-26-2023 Patient encounter procedure [facility]-Laboratory Work Phone: Start: 11-21-2022 End: 11-21-2022 ambulatory [facility] Work Phone: Start: 11-21-2022 End: 11-21-2022 Patient encounter procedure [facility]-Laboratory Work Phone: Start: 10-28-2022 End: 10-28-2022 Patient encounter procedure [facility]-Laboratory Work Phone: Start: 10-13-2021 End: 10-13-2021 Patient encounter procedure [facility]-Laboratory Procedures Date Procedure Procedure Detail Performing Clinician Start: 10-25-2024 Homocysteine measurement No Primary Care Physician Comment on above: Performed at: - [facility] [address] [id number] Director: Magdaleno Mcnamara PhD, Phone: [phone] Start: 10-25-2024 Insulin C-peptide measurement No Primary Care Physician Comment on above: C-Peptide reference interval is for fasting patients.Performed at: [facility] [address] [id number] Director: Magdaleno Mcnamara PhD, Phone: [phone] Start: 08-02-2024 Insulin C-peptide measurement No Primary Care Physician Comment on above: C-Peptide reference interval is for fasting patients.Performed at: [facility] [address] [id number] Director: Magdaleno Mcnamara PhD, Phone: [phone] Payers Date Payer Category Payer Self-pay [id number] 2024 Unknown [id number] 2013 Private Health Insurance [id number] Unknown [id number] [id number] [id number] Unknown [id number] [id number] Unknown [id number] [id number] [id number] Unknown [id number] [id number] Social History Date Type Detail Facility Start: 07-08-2013 End: 07-08-2013 Tobacco smoking status NHIS Unknown if ever smoked [facility] Start: 1960 Sex Assigned At Female [facility] Evaluation note Note Date & Type Note Facility Evaluation note No assessment information availa ble [facility] Work Phone: Reason for referral (narrative) Note Date & Type Note Facility Reason for referral (narrative) No reason for referral information available [facility] Work Phone: Chief Complaint and Reason for Visit Chief Complaint Admit Date Abnormal finding of blood chemistry, uns pecified October 25, 2024 7:11am Summary Purpose Family History No Family History [...] Steele MD Attending Provider, Referring Provider Active Team Status: Active Member Role/Relationship Status Dates No Primary Care Physician Family Provider Active No Primary Care Physician Primary Care Provider Active Team Status: Inactive Member Role/Relationship Status Dates No Primary Care Physician Primary Care Provider Active Start: August 02, 2024 End: August 02, 2024 Dr. Black Steele MD Attending Provider Active Start: August 02, 2024 End: August 02, 2024 Dr. Black Steele MD Referring Provider Active Start: August 02, 2024 End: August 02, 2024 Team Status: Inactive Member Role/Relationship Status Dates No Primary Care Physician Primary Care Provider Active Start: October 25, 2024 End: October 25, 2024 Dr. Black Steele MD Attending Provider Active Start: October 25, 2024 End: October 25, 2024 Dr. Black Steele MD Referring Provider Active Start: October 25, 2024 End: October 25, 2024 INFORMATION SOURCE (unrecogn ized section and content) DATE CREATED AUTHOR 11/02/2024 [facility] FOR RECORDS PERTAINING TO PATIENTS WHO [...] BE BASED ON THE PRIMARY CLINICAL RECORDS. [facility] [employer] ([employer] [facility]. provides no warranty or guarantee of the accuracy or completeness of information in this document.
[2025-02-24 08:04] LABS: Hematocrit 46.2 % (37-47); Hemoglobin 14.9 g/dL (12.0-15.0); Immature Granulocytes Count 0.010 X10^3/uL (0.0-0.0); Mean Corp Hgb Conc 32.3 g/dL (32-36); Mean Corpuscular Volume 88.8 fL (81-99); Mean Platelet Vol. 8.9 fl (6.2-12.0); NRBC Flagged by Analyzer 0 % (0-5); Platelet Count 354 K/mm3 (150-450); RBC Distribution Width CV 12.4 % (11.6-14.6); RBC Distribution Width SD 40.5 fl (35.1-43.9); Red Blood Count 5.20 M/mm3 (4.2-5.4); White Blood Count 8.8 K/mm3 (4.4-11.0)
[2025-02-24 08:48] LABS: AST(SGOT) 22 U/L (<=31); Alanine Aminotransfer ALT/SGPT 18 U/L (<=34); Albumin, Serum 4.2 g/dL (3.4-4.8); Alkaline Phosphatase 59 U/L (35-104); Anion Gap 11 (5-15); BUN 19 mg/dL (4-19); BUN/Creat Ratio 25.9 RATIO (10-20); Calcium,Total 9.5 mg/dL (7.6-11.0); Carbon Dioxide 24.9 mmol/L (21.0-32.0); Chloride 107 mmol/L (98-108); Free T3 2.4 pg/mL (2.18-3.98); Globulin 3.1 g/dL (2.2-4.2); Glucose 90 mg/dL (70-99); Potassium 3.9 mmol/L (3.3-5.1)
[2025-02-25 04:07] LABS: PROGESTERONE 0.4 ng/mL (.)
== END | disposition home or self-care (01) ==
PROVIDERS: Visit Provider Preventive Medicine Public Health & General Preventive Medicine
DX: E03.9 Hypothyroidism, unspecified (principal); E34.9 Endocrine disorder, unspecified; N95.1 Menopausal and female climacteric states
CPT/HCPCS: 36415; 80053; 82670; 84144; 84403; 84439; 84443; 84481; 85025; 86376